=== PATIENT | female | born 1990 | race Caucasian/White ===

== ENCOUNTER 2018-05-18 12:50 | Outpatient (CLI) | payer BC ==
--- NOTE | 2018-06-04 08:08 | Ultrasound Report ---
Reason: EFW FOR DELIVERY PLANNING, GROWTH Procedure Date: 05/18/2018 Accession Number: [id number] / [id number] Procedure: US - OB F/U or Repeat CPT Code: FULL RESULT: EXAM: LIMITED OBSTETRICAL ULTRASOUND EXAM DATE: 05/18/2018 02:34 PM. CLINICAL HISTORY: Encounter for screen for macrosomia. Per physician report, the patient had prior imaging performed in [place] and has a history of macrosomia. COMPARISON: None available. FINDINGS: TECHNIQUE: Real-time sonographic evaluation of the fetus performed by the gear repair supervisor. Multiple artist representative static images were saved for review. DATING: Established EGA 35 weeks and 4 days with ROSANNE 06/18/2018 based on physician supplied established dates. EGA 39 weeks 6 days with ROSANNE 05/19/2018 based on the current ultrasound. GENERAL EVALUATION Morfin . Cardiac activity: 144 bpm. movement: Visualized. Presentation: Cephalic. Placenta: Anterior position. Amniotic fluid: Normal. MANISHA 16.9 cm. MVP 7.2 cm. BIOMETRY Bi-Parietal Diameter (BPD): 9.6 cm, 39 weeks 3 days Head Circumference (HC): 35.4 cm, 41 weeks 2 days Abdominal Circumference (AC): 36.2 cm, 40 weeks 1 day Femur Length (FL): 7.5 cm, 38 weeks 3 days Estimated Weight: 3911 gm, 97th percentile for 35 weeks 4 days. MATERNAL STRUCTURES The cervix is long and closed, at least 5.4 cm. Adnexa are not well seen. IMPRESSION: 1. Morfin live intrauterine with gestational age 35 weeks 4 days based on established due dates as supplied by the referring provider. 2. Estimated weight is in the 97th percentile for assigned dating. LAQUITA
== END 2018-05-18 12:51 | disposition home or self-care (01) ==
LOC: DI 12:50
PROVIDERS: ATTEND Obstetrics & Gynecology
DX: O36.60X1 Maternal care for excessive fetal growth, unspecified trimester, fetus 1 (principal); Z3A.35 35 weeks gestation of pregnancy
CPT/HCPCS: 76816

== ENCOUNTER 2018-05-22 15:29 | Outpatient (CLI) | payer BC | END 2018-05-22 15:30 | LOC: LAB.R 15:29 | PROVIDERS: ATTEND Obstetrics & Gynecology | DX: Z11.3 Encounter for screening for infections with a predominantly sexual mode of transmission (principal); Z36.9 Encounter for antenatal screening, unspecified | CPT/HCPCS: 87081; 87491; 87591 ==

== ENCOUNTER 2018-05-22 15:50 | Outpatient (CLI) | payer BC ==
[2018-05-23 13:49] LABS: HIV AG/AB 4TH GEN NON-REACTIVE (NON-REACTIVE)
[2018-05-23 13:50] LABS: HEPATITIS C ANTIBODY NON-REACTIVE (NON-REACTIVE)
== END 2018-05-22 15:51 | disposition home or self-care (01) ==
LOC: LAB 15:50
PROVIDERS: ATTEND Obstetrics & Gynecology
DX: Z11.3 Encounter for screening for infections with a predominantly sexual mode of transmission (principal); Z36.9 Encounter for antenatal screening, unspecified
CPT/HCPCS: 36415; 81599; 86592; 86803; 87077; 87081; 87389; 87491; 87591

== ENCOUNTER 2018-06-07 18:58 | Outpatient (CLI) | payer BC ==
--- NOTE | 2018-06-08 09:58 | Ultrasound Report ---
Reason: ENCOUNTER FOR SCREENING FOR MACROS Procedure Date: 06/07/2018 Accession Number: [id number] / [id number] Procedure: US - OB Limited CPT Code: FULL RESULT: EXAM: LIMITED OBSTETRICAL ULTRASOUND EXAM DATE: 06/07/2018 08:13 PM. CLINICAL HISTORY: Encounter for screening for macros. COMPARISON: OB limited 05/18/2018 2:34 PM. TECHNIQUE: Real-time sonographic evaluation of the fetus performed by the csm consultant. Multiple sales representative consultant static images were saved for review. DATING: Established EGA 38 weeks 3 days with ROSANNE 06/18/2018. GENERAL EVALUATION Morfin . Cardiac activity: 130 bpm. movement: Visualized. Presentation: Cephalic. Placenta: Anterior and fundal position. Amniotic fluid: Normal. MANISHA 18.4 cm. MVP 6.03 cm. The estimated weight is [address] the fetus in the 97th percentile. The biparietal diameter is 10.1 cm for an estimated age of 41 weeks 5 days. The head circumference of 36.1 cm and the abdominal circumference of 39.7 cm exceed algorithm range for dating. The femur length of 7.8 cm corresponds to a gestational age of 39 weeks and 5 days. MATERNAL STRUCTURES Visualized aspects are normal limits, not specifically evaluated. IMPRESSION: 1. Morfin live intrauterine with gestational age 38 weeks 3 days based on referring provider provided established due date. 2. Persistent macrosomia as described. RADIA
== END 2018-06-07 18:59 | disposition home or self-care (01) ==
LOC: DI 18:58
PROVIDERS: ATTEND Obstetrics & Gynecology
DX: Z36.88 Encounter for antenatal screening for fetal macrosomia (principal); O36.63X0 Maternal care for excessive fetal growth, third trimester, not applicable or unspecified; Z3A.38 38 weeks gestation of pregnancy
CPT/HCPCS: 76815

== ENCOUNTER 2018-06-14 16:43 | Inpatient (IN) | payer BC ==
[2018-06-14] MEDS ORDERED: DINOPROSTONE 10 MG SUPP VG ONE (17:14)
[2018-06-14] MEDS ORDERED: fentaNYL 100 MCG/2 ML VIAL IVP PRN (17:14)
[2018-06-14] MEDS ORDERED: ACETAMINOPHEN 325 MG TABLET PO PRN (17:14)
[2018-06-14 18:08] LABS: BASOPHILS % (AUTO) 0.3 %; EOSINOPHILS # (AUTO) 0.1 10^3/uL (0.0-0.7); EOSINOPHILS % (AUTO) 0.6 %; HGB - HEMOGLOBIN 12.5 g/dL (12.0-16.0); LYMPHOCYTES # (AUTO) 2.2 10^3/uL (1.5-3.5); LYMPHOCYTES % (AUTO) 15.5 %; MEAN CORPUSCULAR HEMOGLOBIN 29.6 pg (27.0-31.0); MEAN CORPUSCULAR HGB CONC 33.7 g/dL (32.0-36.0); MEAN CORPUSCULAR VOLUME 87.9 fL (81.0-99.0); MEAN PLATELET VOLUME 7.4 fL (7.9-10.8); MONOCYTES # (AUTO) 1.4 10^3/uL (0.0-1.0); MONOCYTES % (AUTO) 9.4 %; NEUTROPHILS # (AUTO) 10.7 10^3/uL (1.5-6.6); NEUTROPHILS % (AUTO) 74.2 %; PLT - PLATELET COUNT 271 10^3/uL (130-450); RED BLOOD COUNT 4.21 10^6/uL (4.20-5.40); RED CELL DISTRIBUTION WIDTH 13.9 % (12.0-15.0); WHITE BLOOD COUNT 14.5 x10^3/uL (4.8-10.8)
[2018-06-14] MEDS ORDERED: OXYTOCIN/SODIUM CHLORIDE 500 ML IV ONE (19:48)
[2018-06-15] MEDS ORDERED: ceFAZolin 2 GM/50 ML 2 GM/50 ML BAG IV SCH
[2018-06-15] MEDS: SODIUM CHLORIDE FLUSH 0.9% 10 ML SYRINGE IVP SCH ×3 (07:32→16:06)
[2018-06-15] MEDS: ceFAZolin 1 GM in SODIUM CHLORIDE 0.9% MINIBAG 100 ML IV SCH ×2 (07:56→16:04)
--- NOTE | 2018-06-15 09:27 | HISTORY & PHYSICAL EXAMINATION ---
Admit History - Visit Reason Visit Reason: Other (Induction for suspected Macrosomia) - : 2 Parity: 1 Premature: 0 Ectopic: 0 : 0 Care: positive: [facility] (Pt was a transfer in [facility] at 31 weeks.), None (Ob care started at [place] at 8 weeks continued at [place] then transfered here at 31 weeks. A+, HepB and HIV Negative. Rhubella Immune, GC, CT negative. Delivered a 9lb 6 oz vaginaly after pushing 1 hour. Urine GBS positive X2. 50 gm 124) Risk/History: positive: None Complications This : positive: Treated for GBS/UTI, Other (Suspected Macrosomia EFW 97th %tile. 4787 gm.) Smoking Status: Never smoker - Mother's Labs Mother's Blood Type: positive: A Mother's RH: positive: Positive GBS: positive: Group B Strep Positive Rubella Status: positive: Immune Meds/Allgy - Allergies Allergies/Adverse Reactions: Allergies Allergy/AdvReac Type Severity Reaction Status Date / Time Penicillins Allergy Rash Verified 06/14/18 23:29 Physical - Abdominal Exam Vital Signs: Temp Pulse Resp BP Pulse Ox 36.4 C L 96 22 131/90 H 98 06/15/18 02:00 06/15/18 02:00 06/15/18 02:00 06/15/18 02:00 06/15/18 02:00 Contraction Intensity: positive: Mild - Monitoring Strip Review: positive: Category I - Presentation Presentation: positive: Vertex - Vaginal Exam Membranes: positive: Membranes intact Dilation (in cm): 4 cm Effacement (%): 50 % Station: positive: -2 Cervical Position: positive: Midposition - Speculum Exam Speculum Exam Performed: positive: No Plan for Labor - Plan For Labor I expect patient to be DC'd or transferred within 96 hours.: Yes Plan for Labor: Pt is a 28 yo 39.4 days here for induction for suspected macrosomia. EFW 4787 gms by US. She has successfully delivered a 9 lb 6 oz in the past without difficulty. Labs as above. She is GBS positive and PCN allergic with rash. intermediate sensitivity for Clinda. pt offered PLTCS adsn declines. Reviewed Shoulder dystocia. Cervical ripening with cervidel last night.
[2018-06-15] MEDS: LACTATED RINGERS 1,000 ML IV SCH ×3 (09:29→14:35)
[2018-06-15] MEDS ORDERED: OXYTOCIN/SODIUM CHLORIDE 500 ML IV SCH (10:00)
[2018-06-15 10:35] LABS: URIC ACID 4.8 mg/dL (2.6-7.2)
[2018-06-15 10:55] LABS: CREATININE,URINE 40.2 mg/dL; PROTEIN/CREATININE RATIO,URINE 0.1 (<=0.2)
--- NOTE | 2018-06-15 18:25 | PROVIDER PROGRESS NOTE ---
Labor Progress Note - Uterine Monitoring Uterine Monitoring Mode: positive: External toco : 4 Contraction Intensity: positive: Moderate Uterine Resting Tone: positive: Soft - Monitoring Monitor Mode: positive: External ultrasound Heart Rate Baseline: 150 Heart Rate Variability: positive: Moderate (6-25 bmp) Accelerations: positive: Present, 15x15 Decelerations: positive: None Strip Review: positive: Category I - Vaginal Exam Dilation (in cm): 3 internal oss External oss 6 cm Effacement (%): 50% Station: -2 Cervical Position: Posterior - Labor Progress Note Labor Progress Note/Additional Text: Pt still has a 3 cm internal oss despite pitocin all day. She has had only 1 hour os sleep the past 36 hours. will stop pit fro the night. will alow the pt off monitor tonight as she has had a reactive NST and negative RATE CLERK. Plan dixon bulb in the AM
[2018-06-15] MEDS ORDERED: ZOLPIDEM 5 MG TABLET PO PRN (18:26)
[2018-06-16] MEDS: SODIUM CHLORIDE FLUSH 0.9% 10 ML SYRINGE IVP PRN ×3 (00:03→09:37)
[2018-06-16] MEDS: ceFAZolin 1 GM in SODIUM CHLORIDE 0.9% MINIBAG 100 ML IV SCH ×5 (08:15→23:52)
--- NOTE | 2018-06-16 09:21 | PROVIDER PROGRESS NOTE ---
Labor Progress Note - Uterine Monitoring Contraction Intensity: positive: Mild Uterine Resting Tone: positive: Soft - Monitoring Monitor Mode: positive: External ultrasound Strip Review: positive: Category I - Vaginal Exam Station: Ballotable (cx very posterior unable to reach or place Cook cathiter) Cervical Position: Posterior - Labor Progress Note Labor Progress Note/Additional Text: Pt rested well last PM. ready for Cook cathiter. After several attempts with and without speculum was unable to place catiter. cervidel placed high in the vagina
[2018-06-16] MEDS ORDERED: DINOPROSTONE 10 MG SUPP VG ONE (09:30)
[2018-06-16] MEDS: SODIUM CHLORIDE FLUSH 0.9% 10 ML SYRINGE IVP SCH ×3 (10:10→16:11)
--- NOTE | 2018-06-16 15:03 | PROVIDER PROGRESS NOTE ---
Labor Progress Note - Uterine Monitoring Contraction Frequency (min/apart): 2 Contraction Intensity: positive: Moderate to strong Uterine Resting Tone: positive: Soft - Monitoring Monitor Mode: positive: External ultrasound Heart Rate Baseline: 140 Heart Rate Variability: positive: Moderate (6-25 bmp) Accelerations: positive: Present, 15x15 Decelerations: positive: None Strip Review: positive: Category I - Vaginal Exam Dilation (in cm): 4 Effacement (%): 80 Station: -3 Cervical Position: Posterior - Labor Progress Note Labor Progress Note/Additional Text: Pt is experiencing good strong contractions. Cx is progressing but the head is not desending quickly. good contraction pattern. will follow if head stops decending will C/S
[2018-06-16] MEDS ORDERED: miSOPROStol 200 MCG TABLET ONE (17:09)
[2018-06-16] MEDS ORDERED: LIDOCAINE 1% 50 ML MDV ONE (17:09)
[2018-06-16] MEDS: LACTATED RINGERS 1,000 ML IV SCH ×2 (17:53→19:33)
[2018-06-16] MEDS ORDERED: ROPIVACAINE 0.2% PF 20 ML AMPULE ONE (18:09)
[2018-06-16] MEDS ORDERED: fent/BUPIV 2 MCG/0.125% 250 ML EP ONE (18:10)
[2018-06-16] MEDS ORDERED: ROPIVACAINE 0.2% PF 10 ML AMPULE EPI ONE (18:42)
--- NOTE | 2018-06-16 19:18 | PROVIDER PROGRESS NOTE ---
Labor Progress Note - Uterine Monitoring Uterine Monitoring Mode: positive: External toco Contraction Frequency (min/apart): 2 Contraction Intensity: positive: Strong Uterine Resting Tone: positive: Soft - Monitoring Monitor Mode: positive: External ultrasound Heart Rate Baseline: 140 Heart Rate Variability: positive: Moderate (6-25 bmp) Accelerations: positive: Present, 15x15 Decelerations: positive: None Strip Review: positive: Category I - Vaginal Exam Dilation (in cm): 5 Effacement (%): 90 Station: Ballotable Cervical Position: Posterior (Cervis is progressing but head is back up. will place dixon to drain the bladder.)
[2018-06-16] MEDS ORDERED: MINERAL OIL LIGHT 10 ML MC ONE (19:48)
[2018-06-16] MEDS: ONDANSETRON 4 MG/2 ML VIAL IVP PRN (22:11)
[2018-06-16] MEDS: CALCIUM CARBONATE CHEW 500 MG TABLET PO PRN (23:23)
[2018-06-17] MEDS ORDERED: ROPIVACAINE 0.2% PF 20 ML AMPULE ONE (00:07)
[2018-06-17] MEDS: CALCIUM CARBONATE CHEW 500 MG TABLET PO PRN ×2 (01:57→08:11)
[2018-06-17] MEDS: LACTATED RINGERS 1,000 ML IV SCH ×2 (02:39→16:10)
[2018-06-17] MEDS: ONDANSETRON 4 MG/2 ML VIAL IVP PRN ×3 (04:43→17:59)
[2018-06-17] MEDS ORDERED: fent/BUPIV 2 MCG/0.125% 250 ML EP ONE (06:05)
[2018-06-17] MEDS ORDERED: OXYTOCIN/SODIUM CHLORIDE 500 ML IV SCH (06:30)
--- NOTE | 2018-06-17 07:15 | PROVIDER PROGRESS NOTE ---
Labor Progress Note - Uterine Monitoring Uterine Monitoring Mode: positive: External toco : 4 Contraction Intensity: positive: Strong - Monitoring Monitor Mode: positive: External ultrasound Heart Rate Baseline: 125 Heart Rate Variability: positive: Moderate (6-25 bmp) Accelerations: positive: Present, 15x15 Decelerations: positive: None Strip Review: positive: Category I - Vaginal Exam Dilation (in cm): 10 Effacement (%): 100 Station: 3 Cervical Position: Anterior - Labor Progress Note Labor Progress Note/Additional Text: Pt reached complete at 0420 ad SROMed clear fluid. Has beed pushing well. Has brought the Head from 0 to +3. Strip reactive contractions have spaced so pitocin Started.
[2018-06-17] MEDS: ceFAZolin 1 GM in SODIUM CHLORIDE 0.9% MINIBAG 100 ML IV SCH (07:59)
--- NOTE | 2018-06-17 09:27 | PROVIDER PROGRESS NOTE ---
Labor Progress Note - Uterine Monitoring : 4-5 Contraction Intensity: positive: Strong Uterine Resting Tone: positive: Soft - Monitoring Monitor Mode: positive: External ultrasound Heart Rate Baseline: 120 Heart Rate Variability: positive: Moderate (6-25 bmp) Accelerations: positive: Present, 15x15 - Vaginal Exam Dilation (in cm): 10 Effacement (%): 100% Station: 2 Cervical Position: Anterior - Labor Progress Note Labor Progress Note/Additional Text: Pt has been pushing since 419. she has arrested at +2. She has been pushing with excellent effort. Augmented with Pit. baby is suspected to be 10.4 lb by US. Pt is anxious about C/S. explained R&B. Consent signed.
[2018-06-17] MEDS ORDERED: CITRIC ACID/SODIUM CITRATE 15 ML UDC PO ONE (09:29)
[2018-06-17] MEDS ORDERED: ceFAZolin 2 GM/50 ML 2 GM/50 ML BAG IV SCH (09:30)
--- NOTE | 2018-06-17 09:46 | ANESTHESIA ---
Pre-Anesthesia VS, & Labs - Diagnosis Arrest of descent and macrosomia - Procedure Primary C/S Vital Signs: Temp Pulse Resp BP Pulse Ox 36.8 C 101 H 16 126/62 97 06/15/18 21:00 06/15/18 21:00 06/15/18 21:00 06/15/18 21:00 06/15/18 21:00 Height 5 ft 5 in Weight (kg) 107.955 kg - NPO >8 hours - Is Patient ?: Yes - Lab Results Current Lab Results: Laboratory Tests 06/15/18 10:04: Uric Acid 4.8, AST 14 06/15/18 10:04: Lactate Dehydrogenase 129 06/14/18 17:42: Blood Type A POSITIVE, Antibody Screen NEGATIVE 06/14/18 17:42: WBC 14.5 H, RBC 4.21, Hgb 12.5, Hct 37.0, MCV 87.9, MCH 29.6, MCHC 33.7, RDW 13.9, Plt Count 271, MPV 7.4 L, Neut # (Auto) 10.7 H, Lymph # (Auto) 2.2, Dubois # (Auto) 1.4 H, Eos # (Auto) 0.1, Baso # (Auto) 0.0, Absolute Nucleated RBC 0.01, Nucleated RBC % 0.1 Fish Bones: 06/14/18 17:42 Home Medications and Allergies Active Medications Acetaminophen (Tylenol) 650 mg PO Q6H PRN PRN Reason: Pain or Fever Calcium Carbonate/Glycine (Tums) 1,000 mg PO Q2HR PRN PRN Reason: Heartburn Last Admin: 06/17/18 08:11 Dose: 1,000 mg Fentanyl (Fentanyl) 50 mcg IVP Q1H PRN PRN Reason: PAIN Lactated Ringer's (Lr) 1,000 mls @ 100 mls/hr IV .Q10H DI Last Admin: 06/17/18 02:39 Dose: 150 mls/hr Cefazolin Sodium 1 gm/ Sodium (Chloride) 100 mls @ 200 mls/hr IV Q8H DI Last Infusion: 06/17/18 08:30 Dose: Infused Oxytocin/Sodium Chloride (Pitocin/Sodium Chloride) 500 mls @ 1 mls/hr IV TITR DI; Protocol Last Titration: 11/11/18 09:32 Dose: 0 mls/hr Cefazolin Sodium/Dextrose (Ancef 2 Gm/50 Ml) 2 gm in 50 mls @ 100 mls/hr IV Q8H [facility] Ondansetron HCl (Zofran Inj) 4 mg IVP Q4HR PRN PRN Reason: Nausea / Vomiting Last Admin: 06/17/18 04:43 Dose: 4 mg Sodium Chloride (Normal Saline Flush 0.9%) 10 ml IVP 0100,0900,1700 DI Last Admin: 06/16/18 16:11 Dose: Not Given Sodium Chloride (Normal Saline Flush 0.9%) 10 ml IVP PRN PRN PRN Reason: NEEDED PER PROVIDER ORDERS Last Admin: 06/16/18 09:37 Dose: 10 ml Zolpidem Tartrate (Ambien) 5 mg PO QPM PRN PRN Reason: Insomnia Last Admin: 06/15/18 20:30 Dose: 5 mg Allergies/Adverse Reactions: Allergies Allergy/AdvReac Type Severity Reaction Status Date / Time Penicillins Allergy Rash Verified 06/14/18 23:29 Anes History & Medical History - Anesthetic History Anesthesia Complications: reports: No previous complications - Medical History Cardiovascular: reports: None Pulmonary: reports: None Gastrointestinal: reports: GERD (poorly controlled) Urinary: reports: None Neuro: reports: None Musculoskeletal: reports: None Endocrine/Autoimmune: reports: None Blood Disorders: reports: None Skin: reports: None Smoking Status: Never smoker Psychosocial: reports: No issues indicated - Surgical History General: Cholecystectomy Orthopedic: Arthroscopic surgery (Knee scope x2) - Obstetrical History : 2 Parity: 1 Events: positive: None Complications: positive: Treated for GBS/UTI, Other (Suspected Macrosomia EFW 97th %tile. 4787 gm.) Exam General: Alert, Oriented x3, Cooperative, No acute distress Dental: WNL Mouth Openin Fingerbreadth Neck Mobility: Normal Mallampati classification: II Thyromental Distance: 4-6 cm Respiratory: Lungs clear, Normal breath sounds, No respiratory distress, No accessory muscle use Cardiovascular: Regular rate, Normal S1, Normal S2, No murmurs Mental/Cognitive Status: Alert/Oriented X3, Normal for patient Cognitive Status: Within normal limits Plan Anesthesia Type: Epidural Consent for Procedure(s) Verified and Reviewed: Yes Code Status: Attempt Resuscitation ASA classification: 2-Mild systemic disease Is this case an emergency?: Yes
[2018-06-17] MEDS ORDERED: BUPIVACAINE 0.5% PF 10 ML VIAL ONE (09:56)
[2018-06-17] MEDS ORDERED: LACTATED RINGERS 500 ML IV ONE (09:59)
[2018-06-17] MEDS ORDERED: LACTATED RINGERS 1,000 ML IV ONE (09:59)
[2018-06-17] MEDS ORDERED: ceFAZolin 2 GM/50 ML 2 GM/50 ML BAG IV ONE (11:23)
[2018-06-17] MEDS ORDERED: fentaNYL 100 MCG/2 ML VIAL IVP ONE (11:23)
[2018-06-17] MEDS ORDERED: HYDROmorphone 1 MG/ML CARPUJECT IVP ONE (11:23)
[2018-06-17] MEDS ORDERED: OXYTOCIN 10 UNIT/ML VIAL IV ONE (11:23)
[2018-06-17] MEDS ORDERED: PROPOFOL 200 MG/20 ML VIAL IVP ONE (11:23)
[2018-06-17] MEDS ORDERED: SUCCINYLCHOLINE 200 MG/10 ML VIAL IVP ONE (11:23)
[2018-06-17] MEDS ORDERED: BUPIVACAINE 0.5% PF 10 ML VIAL IM ONE (11:23)
[2018-06-17] MEDS ORDERED: ACETAMINOPHEN 1,000 MG/100 ML 100 ML IV ONE (11:23)
[2018-06-17] MEDS ORDERED: KETOROLAC 30 MG/ML VIAL IVP ONE (11:23)
[2018-06-17] MEDS ORDERED: CARBOPROST TROMETHAMINE 250 MCG/ML AMP IM ONE ×2 (11:23→12:32)
[2018-06-17] MEDS ORDERED: LIDOCAINE-MPF 2% 5 ML VIAL IM ONE (11:23)
[2018-06-17] MEDS ORDERED: ONDANSETRON 4 MG/2 ML VIAL IVP ONE (11:23)
[2018-06-17] MEDS ORDERED: SODIUM CHLORIDE FLUSH 0.9% 10 ML SYRINGE IVP PRN (12:18)
[2018-06-17] MEDS ORDERED: diphenhydrAMINE 25 MG CAPSULE PO PRN (12:18)
[2018-06-17] MEDS ORDERED: HYDROmorphone PCA 20MG/100ML IV PRN (12:24)
--- NOTE | 2018-06-17 12:32 | OPERATIVE REPORT ---
Operative Report - General Admit Date: 06/15/18 Procedure Date: 06/17/18 Planned Procedure: PLTC/S Pre-Op Diagnosis: Arrest of dilitation Procedure Performed: PLTC/S Post Op Diagnosis: Suspected feta; macrosomia 10.4 lb, Arrest of decent - Procedure Note Primary Surgeon: Ayden Shipman MD Secondary Surgeon: Jessenia ISLAS Anesthesia Technique: General ET tube Estimated Blood Loss (mL): 900 Drain/Tube Type: Other (Wound Vac) Complications: None - Other Other Information/Narrative: [id number]
[2018-06-17] MEDS ORDERED: LACTATED RINGERS 1,000 ML IV SCH (13:00)
--- NOTE | 2018-06-17 13:14 | OPERATIVE REPORT ---
DATE OF SERVICE: 06/17/2018 Physician: Ayden Shipman MD PREOPERATIVE DIAGNOSES 1. Thirty-nine weeks. 2. Suspected macrosomia 10.5 pounds. 3. Arrest of descent. POSTOPERATIVE DIAGNOSES 1. Thirty-nine weeks. 2. 8 lbs 15 oz. 3. Arrest of descent. PROCEDURE PERFORMED: Primary low transverse section. SANDER SETTER: Jessenia Calvo CRNA. ANESTHESIA: General via endotracheal tube. ESTIMATED BLOOD LOSS: 900 mL FINDINGS: Live male , Apgars 6 and 8. Weighing 8 pounds 15 ounces. Normal uterus, tubes and ovaries. Mild post-delivery atony. DESCRIPTION OF PROCEDURE: Patient was placed in the supine position, and following prep and drape in the usual fashion, the epidural was tested and noted not to be adequate. Because of suspected possible intravascular leak with the previous injection, it was decided to proceed with a general anesthesia. At this point, patient was induced with a rapid sequence, then a Pfannenstiel incision was carried down through the subcutaneous tissue to the fascia. The fascia was incised transversely, then using both blunt and sharp dissection, it was freed from the rectus abdominis and pyramidalis. The rectus was split along the midline. The peritoneum was entered high. Care was taken to avoid any injury to bowel or bladder. At this point, a bladder flap was developed using both blunt and sharp dissection, a low transverse uterine incision was accomplished using a #10 blade and bandage scissors. Clear amniotic fluid was encountered, and there was copious amounts of this. The head of the , which was deeply wedged in the pelvis, was brought up straight to decrease the risk of any lateral extensions. The head was to be OP. The oropharynx was bulb suctioned, and then the infant was delivered, following reducing the nuchal cord. The cord was doubly clamped and divided. The infant was handed to the nursery team that was standing by. Cord blood samples were obtained, and at this point, the placenta was manually delivered. The uterus was exteriorized, wrapped in the external portion with a moist lap, and cleansed in the internal portion with a dry lap. Lower portion of the incision was grasped with ring forceps, and then the incision was closed utilizing a running locking suture of 0 Vicryl. This was imbricated with 0 Vicryl with an imbricating layer as there were some vascularity. There was evidence of some bleeding from a vessel that was in the midline between the uterus and the bladder. This was treated with [id number] of 2-0 Vicryl. Good hemostasis was observed. The cul-de-sac was cleared of any clot, and the estimation of blood loss was made at this time. At this point, the uterus was delivered back in the abdominal cavity, following irrigating the cul-de-sac. There was bleeding on the left fimbriated end of the fallopian tube; this was treated with electrocautery. The incision was inspected and additional [id number]-[id number] of 2-0 Vicryl utilized to obtain good hemostasis. The gutters were irrigated, no further bleeding was noted, and following this, the incision was inspected, and once again this was dry. Peritoneum was closed utilizing 2-0 Vicryl, and then the fascia was closed utilizing looped PDS. The subcutaneous tissue was cauterized, irrigated, and then closed utilizing 2-0 Vicryl interrupted sutures. The incision itself closed using subcuticular Monocryl and then Steri-Strips following Mastisol were applied. A wound VAC was then placed. The uterus was expressed. Patient tolerated the procedure well and was taken to recovery in stable condition. Sponge and needle counts were correct. TD: 06/17/2018 12:47 MTDShaka
[2018-06-17] MEDS: SODIUM CHLORIDE FLUSH 0.9% 10 ML SYRINGE IVP SCH ×4 (13:45→21:59)
[2018-06-17] MEDS: SIMETHICONE CHEW 80 MG TABLET PO SCH ×2 (16:04→21:59)
[2018-06-17] MEDS: KETOROLAC 30 MG/ML VIAL IV SCH ×2 (16:04→21:59)
[2018-06-17] MEDS ORDERED: SODIUM CHLORIDE FLUSH 0.9% 10 ML SYRINGE IVP SCH (17:00)
[2018-06-17] MEDS: ACETAMINOPHEN 500 MG TABLET PO SCH (17:59)
[2018-06-17] MEDS: oxyCODONE 5 MG TABLET PO PRN ×2 (19:00→23:01)
[2018-06-18] MEDS: ACETAMINOPHEN 500 MG TABLET PO SCH ×4 (00:03→23:59)
[2018-06-18] MEDS: oxyCODONE 5 MG TABLET PO PRN ×7 (03:14→23:59)
[2018-06-18] MEDS: SODIUM CHLORIDE FLUSH 0.9% 10 ML SYRINGE IVP SCH ×4 (04:08→10:14)
[2018-06-18] MEDS: KETOROLAC 30 MG/ML VIAL IV SCH ×2 (04:08→10:12)
[2018-06-18 06:25] LABS: BASOPHILS % (AUTO) 0.2 %; EOSINOPHILS # (AUTO) 0.2 10^3/uL (0.0-0.7); EOSINOPHILS % (AUTO) 1.8 %; HGB - HEMOGLOBIN 10.2 g/dL (12.0-16.0); LYMPHOCYTES # (AUTO) 1.8 10^3/uL (1.5-3.5); LYMPHOCYTES % (AUTO) 13.4 %; MEAN CORPUSCULAR HEMOGLOBIN 30.4 pg (27.0-31.0); MEAN CORPUSCULAR HGB CONC 34.3 g/dL (32.0-36.0); MEAN CORPUSCULAR VOLUME 88.6 fL (81.0-99.0); MEAN PLATELET VOLUME 6.7 fL (7.9-10.8); MONOCYTES # (AUTO) 1.4 10^3/uL (0.0-1.0); MONOCYTES % (AUTO) 10.3 %; NEUTROPHILS # (AUTO) 9.9 10^3/uL (1.5-6.6); NEUTROPHILS % (AUTO) 74.3 %; PLT - PLATELET COUNT 230 10^3/uL (130-450); RED BLOOD COUNT 3.36 10^6/uL (4.20-5.40); RED CELL DISTRIBUTION WIDTH 14.3 % (12.0-15.0); WHITE BLOOD COUNT 13.4 x10^3/uL (4.8-10.8)
[2018-06-18] MEDS: SIMETHICONE CHEW 80 MG TABLET PO SCH ×3 (08:00→16:03)
--- NOTE | 2018-06-18 08:59 | PROVIDER PROGRESS NOTE ---
Subjective - General Admit Date: 06/15/18 Procedure Date: 06/17/18 Post Op Days: 1 Procedure Performed: PLTC/S - Review of Systems Wound/Incisions: positive: Healing well Drain Type: Wound Vac General: positive: No symptoms (Pain 3/10 notes good pain control) Gastrointestinal: negative: Flatus Objective - Patient Data Reviewed Vital Signs: Yes Vital Signs: Vital Signs x48h Temp Pulse Resp BP Pulse Ox 06/18/18 08:00 36.7 C 113 H 18 123/89 H 98 06/18/18 03:34 36.5 C 85 18 118/71 96 Intake & Output: Intake and Output Totals x24h 06/16/18 06/17/18 06/18/18 23:59 23:59 23:59 Intake Total 1811.5 3202.9 1500 Output Total 226 3080 2000 Balance 1585.5 122.9 -500 - Lab Results Lab Results: 06/18/18 06:12 Other Lab Results: Lab Results x24hrs 06/18/18 Range/Units 06:12 WBC 13.4 H (4.8-10.8) x10^3/uL RBC 3.36 L (4.20-5.40) 10^6/uL Hgb 10.2 L (12.0-16.0) g/dL Hct 29.8 L (37.0-47.0) % MCV 88.6 (81.0-99.0) fL MCH 30.4 (27.0-31.0) pg MCHC 34.3 (32.0-36.0) g/dL RDW 14.3 (12.0-15.0) % Plt Count 230 (130-450) 10^3/uL MPV 6.7 L (7.9-10.8) fL Neut # (Auto) 9.9 H (1.5-6.6) 10^3/uL Lymph # (Auto) 1.8 (1.5-3.5) 10^3/uL Wilson # (Auto) 1.4 H (0.0-1.0) 10^3/uL Eos # (Auto) 0.2 (0.0-0.7) 10^3/uL Baso # (Auto) 0.0 (0.0-0.1) 10^3/uL Absolute Nucleated RBC 0.00 x10^3/uL Nucleated RBC % 0.0 /100WBC - Current Medications Current Medications: Current Medications Generic Name Dose Route Start Last Admin Trade Name Nghia PRN Reason Stop Dose Admin Acetaminophen 1,000 mg 06/17/18 13:00 06/18/18 08:00 Tylenol PO 1,000 mg Q8H DI Administration Calcium Carbonate/Glycine 1,000 mg 06/16/18 22:48 06/17/18 08:11 Tums PO 1,000 mg Q2HR PRN Administration Heartburn Hydromorphone HCl 0 mg 06/17/18 12:24 06/17/18 12:45 Dilaudid Fur Finisher 20mg/100ml IV 20 mg PRN PRN Administration PAIN Protocol Lactated Ringer's 1,000 mls @ 100 mls/hr 06/14/18 18:00 06/18/18 00:00 Lr IV Infused .Q10H DI Infusion Oxytocin/Sodium Chloride 500 mls @ 1 mls/hr 06/17/18 06:30 06/18/18 00:00 Pitocin/Sodium Chloride IV 0 milliunit/min TITR DI 0 mls/hr Titration Protocol 1 MILLIUNIT/MIN Ondansetron HCl 4 mg 06/14/18 17:14 06/17/18 17:59 Zofran Inj IVP 4 mg Q4HR PRN Administration Nausea / Vomiting Oxycodone HCl 5 mg 06/17/18 12:18 06/18/18 08:00 Roxicodone PO 5 mg Q4HR PRN Administration PAIN Simethicone 80 mg 06/17/18 14:00 06/18/18 08:00 Mylicon PO 80 mg TID DI Administration Sodium Chloride 10 ml 06/15/18 01:00 06/18/18 08:00 Normal Saline Flush 0.9% IVP 10 ml 0100,0900,1700 DI Administration Sodium Chloride 10 ml 06/14/18 17:14 06/16/18 09:37 Normal Saline Flush 0.9% IVP 10 ml PRN PRN Administration NEEDED PER PROVIDER ORDERS Sodium Chloride 10 ml 06/17/18 17:00 06/17/18 16:04 Normal Saline Flush 0.9% IVP 10 ml 0100,0900,1700 DI Administration Zolpidem Tartrate 5 mg 06/15/18 18:26 06/15/18 20:30 Ambien PO 5 mg QPM PRN Administration Insomnia - Physical Exam Wound/Incisions: positive: Dressing dry and intact (Good seal) General Appearance: positive: No acute distress (breast feeding) Respiratory: positive: Chest non-tender, No respiratory distress, Breath sounds nml Cardiovascular: positive: Regular rate & rhythm, No murmur, No gallop Abdomen: positive: Nml bowel sounds, Tenderness (Postop) Back: negative: CVA tenderness (R), CVA tenderness (L) Skin: positive: Color nml, No rash, Warm, Dry Extremities: negative: Calf tenderness, Kat's sign/cords Neurologic/Psychiatric: positive: Oriented x3 Impression/Plan - Problem List Problem List: POD #1 progressing well will start MOM
[2018-06-18] MEDS ORDERED: MAGNESIUM HYDROXIDE 2,400 MG/30 ML UDC PO PRN (09:01)
[2018-06-18] MEDS: IBUPROFEN 800 MG TABLET PO SCH ×2 (16:03→22:35)
[2018-06-18] MEDS: DOCUSATE SODIUM 100 MG CAPSULE PO SCH (20:15)
[2018-06-19] MEDS: oxyCODONE 5 MG TABLET PO PRN ×3 (05:01→12:25)
[2018-06-19] MEDS: IBUPROFEN 800 MG TABLET PO SCH ×2 (05:53→12:26)
[2018-06-19] MEDS: SIMETHICONE CHEW 80 MG TABLET PO SCH ×2 (08:21→11:34)
[2018-06-19] MEDS: DOCUSATE SODIUM 100 MG CAPSULE PO SCH (08:21)
[2018-06-19] MEDS: ACETAMINOPHEN 500 MG TABLET PO SCH (08:22)
[2018-06-19 11:21] VITALS: BP 129/75
--- NOTE | 2018-06-19 12:48 | PROVIDER PROGRESS NOTE ---
Subjective - General Admit Date: 06/15/18 Procedure Date: 06/17/18 Post Op Days: 2 Procedure Performed: PLTC/S - Review of Systems Wound/Incisions: positive: Dressing dry and intact (doing well) Drain Type: Wound Vac General: positive: No symptoms (Pain 3/10 notes good pain control. using 10 Mg oxycodone) Gastrointestinal: negative: Flatus Objective - Patient Data Reviewed Vital Signs: Yes Vital Signs: Vital Signs x48h Temp Pulse Resp BP Pulse Ox 06/19/18 11:17 36.4 C L 91 19 129/75 98 06/19/18 08:15 36.5 C 92 18 128/79 98 06/19/18 05:09 36.8 C 88 18 123/74 97 Intake & Output: Intake and Output Totals x24h 06/17/18 06/18/18 06/19/18 23:59 23:59 23:59 Intake Total 3202.9 4060 Output Total 3080 2350 Balance 122.9 1710 - Lab Results Lab Results: 06/18/18 06:12 - Current Medications Current Medications: Current Medications Generic Name Dose Route Start Last Admin Trade Name Freq PRN Reason Stop Dose Admin Acetaminophen 1,000 mg 06/17/18 13:00 06/19/18 08:22 Tylenol PO 1,000 mg Q8H DI Administration Calcium Carbonate/Glycine 1,000 mg 06/16/18 22:48 06/17/18 08:11 Tums PO 1,000 mg Q2HR PRN Administration Heartburn Docusate Sodium 100 mg 06/18/18 21:00 06/19/18 08:21 Colace 100mg Capsule PO 100 mg BID DI Administration Ibuprofen 800 mg 06/18/18 13:00 06/19/18 12:26 Motrin PO 800 mg Q6H DI Administration Oxycodone HCl 10 mg 06/18/18 13:54 06/19/18 12:25 Roxicodone PO 10 mg Q4HR PRN Administration PAIN Simethicone 80 mg 06/17/18 14:00 06/19/18 11:34 Mylicon PO 80 mg TID DI Administration Zolpidem Tartrate 5 mg 06/15/18 18:26 06/15/18 20:30 Ambien PO 5 mg QPM PRN Administration Insomnia - Physical Exam Wound/Incisions: positive: Dressing dry and intact General Appearance: positive: No acute distress, Alert Respiratory: positive: Chest non-tender, No respiratory distress, Breath sounds nml Cardiovascular: positive: Regular rate & rhythm, No murmur Abdomen: positive: Tenderness (on uterus as expected) Rectal: positive: Mass (U-0) Back: negative: CVA tenderness (R), CVA tenderness (L) Neurologic/Psychiatric: positive: Oriented x3 Impression/Plan - Problem List Problem List: S/P PLTC/S progressing well. Discharge to home. RTC one week for vound vac removal. Discharge Meds Oxycodone 10 Mg Motrin 800 colace 100 mg Breast feeding.
--- NOTE | 2018-06-19 12:52 | Discharge Plan ---
Discharge Plan Disposition: 01 Home, Self Care Condition: Good Diet: Regular Shower Restrictions: No Driving Restrictions: Yes (when taking narcotics) Weight Bearing: Full Weight No Smoking: If you smoke, Please STOP! Call for help. Follow-up with: Ayden Shipman MD [Provider Admit Priv/Credential] -
--- NOTE | 2018-06-19 15:03 | Labor Flowsheet ---
Labor Flowsheet Datetime Report Generated by CPN: 06/19/2018 15:03 Datetime: 06/19/2018 11:09 Pulse: 86 SpO2 (%): 98 LaborFlag: Labor Datetime: 06/19/2018 11:08 VITAL SIGNS NBP Sys/Corrina/Mean (mmHg): 129 : 75 : 86 Datetime: 06/17/2018 09:51 Comments: FHT 120s prior to leaving room for Datetime: 06/17/2018 09:45 UTERINE ACTIVITY Monitor Mode: External Frequency (min): 4-6 Quality: Strong Duration (sec): 50-90 Pattern: Normal: <= 5 Contractions in 10 Minutes Resting Tone (Palpate): Relaxed ASSESSMENT A Monitor Mode: External US FHR Baseline Rate : 120 FHR Baseline Changes: No Baseline Change Variability: Moderate 6-25 bpm Accelerations: 15X15 Decelerations: None Category: Category I Oxygen Method: Room Air Datetime: 06/17/2018 09:39 Anesthesia Comments: adreine estefani here Datetime: 06/17/2018 09:38 Respirations: 16 Temperature (C): 37.0 Datetime: 06/17/2018 09:02 Communication Comments: c -section decision Datetime: 06/17/2018 08:26 Vaginal Exam Comments: +2 to +3 COMMUNICATION Communication: Provider at Bedside Datetime: 06/17/2018 08:20 Effacement (%): 2 Datetime: 06/17/2018 07:46 MEDICATIONS Pitocin (milliunits): Increased to @ 3 Datetime: 06/17/2018 07:44 Monitor Interventions for FHR: Ultrasound Adjusted Datetime: 06/17/2018 07:15 Monitor Interventions for UA: [place] Adjusted Datetime: 06/17/2018 07:05 TEACHING Instructional Method: Verbal Plan of Care: Plan of Care Discussed Datetime: 06/17/2018 07:03 PAIN Pain Scale: 0 Pain Presence: None/Denies Pain Type: N/A Datetime: 06/17/2018 06:38 Provider Notified (Name): Dr. Giem Datetime: 06/17/2018 06:00 Unit Routine: Medications Labor/Induction: Augmentation Medications: Pitocin Datetime: 06/17/2018 05:47 Patient Position/Activity: High Fowlers Datetime: 06/17/2018 04:43 Antiemetics/Antacids: Zofran (mg) @ Datetime: 06/17/2018 04:35 STAGE 2 Pushing: Coached on Pushing Pushing Position: Pushing with Contractions Pushing Progress: Descent with Pushing Datetime: 06/17/2018 04:20 VAGINAL EXAM Dilatation (cm): 10.0 Station: 0 Exam by: Orestes, RN Datetime: 06/17/2018 04:15 Membrane Status: Ruptured Membranes Rupture Method: Spontaneous Amniotic Fluid Color: Clear Amniotic Fluid Amount: Moderate Membrane Comments: bloody show Datetime: 06/17/2018 04:11 Pain Assessment Comments: pt sleeping Datetime: 06/17/2018 04:06 Patient Care Comments: pt sleeping Datetime: 06/17/2018 02:00 MATERNAL ASSESSMENT Level of Consciousness: Fully Conscious Breath Sounds, Left: Clear and Equal Breath Sounds, Right: Clear and Equal Nausea/Vomiting: Hx of Nausea/Vomiting Medication Comments: tums Anesthesia Level Check: T7 Datetime: 06/17/2018 00:12 Pain Management: Epidural Datetime: 06/17/2018 00:07 Epidural Procedure: Loading Dose Datetime: 06/16/2018 20:00 Actions for Decelerations: Side to Side Datetime: 06/16/2018 19:24 I/O Interventions: Richter Cath Inserted Datetime: 06/16/2018 18:30 Stage of : Labor Pain Location: Abdomen Pain Goal: 3 Pain Relief Measures: Comfort Measures Datetime: 06/16/2018 18:20 Epidural Procedure Other: Pump Started Datetime: 06/16/2018 17:49 PATIENT CARE IV/Blood Work: New IV Bag Hung Datetime: 06/16/2018 17:39 PROCEDURE TIME OUT Procedure Verify: Correct Patient Identity; Correct Side and Site are Marked; Accurate Procedure Co nsent Form; Agreement on Procedure to be Done; Correct Patient Position; Safety Precautions Based on Patient History or Medication Use ANESTHESIA Anesthesia Plans: Epidural Epidural Positioning: Sitting Datetime: 06/16/2018 17:10 Anesthesia Interview: Dr. Huff called for request for epidural placement, IV bolus started. He's enroute Datetime: 06/16/2018 17:08 Hygiene: Underpad Changed; Peripad Changed Datetime: 06/16/2018 17:00 Pain Coping: Talking Through Contractions; Breathing Through Contractions Anesthesia Interventions Other: Other Notification Reason: Status Update; Labor Status; Pain; Patient Request Nurse Giving Report: Patient cervix change, patient requesting an epidural Datetime: 06/16/2018 15:00 Temperature Route: Oral Cervix, Consistency: Soft Cervix, Position: Posterior Presentation 'A': Cephalic Comfort Measures: Breathing/Relaxation; Family Support Provider Reviewed Strip: Yes Strip Reviewed by: Dr. Giem Datetime: 06/16/2018 11:15 Cervical Ripening Agents: Cervidil Datetime: 06/16/2018 09:15 COOK'S SCORE Dilatation (cm): 3-4 cms Effacement: 40-50_ effaced Station: minus 2 Consistency: Soft Position: Posterior Total Cook's Score: 6 : 5-8 = Small percentage of induction failure Cervical Ripening Agents Other: cervidil placed @9:15 after several attempts to placed Cook cathete r by provider Procedures: Sterile Vag Exam Datetime: 06/16/2018 08:11 Headache: Denies RUQ Epigastric Pain: Denies PRE-INDUCTION CHECKLIST Orders on Chart: Yes H Datetime: 06/15/2018 18:02 Vital Sign Comments: SL'd Datetime: 06/15/2018 16:45 Contraction Comments: Unable to determine contraction frequency due to patient getting out of jacuz zi and getting dressed. x3 contractions noted lasting between 60-90 seconds. Datetime: 06/15/2018 16:03 Antibiotics: Ancef IV (Gm) @ 1 Datetime: 06/15/2018 14:55 Vaginal Bleeding: None Datetime: 06/15/2018 09:28 Pitocin Checklist: At Least 1 Acceleration of 15 bpm x 15 Seconds in 30 Minutes or Adequate Variabi lity; No More than 1 Late Deceleration Occurred in Past 30 Minutes; No More than 2 Variable Decelerat ions > 60 Seconds in Duration and decreasing >60 bpm in 30 minutes; No More than 5 Uterine Contractio ns in 10 Minutes for any 20 Minute Interval; Uterus Palpates Soft between Contractions Datetime: 06/15/2018 09:05 Maternal Comments: havy breathing through ctxs Datetime: 06/15/2018 09:03 DTR's/Clonus: DTRs 2+ Datetime: 06/15/2018 01:30 Resting Tone IUP (mmHg):
--- NOTE | 2018-07-04 20:49 | DISCHARGE SUMMARY ---
Physician: Ayden Shipman MD DATE OF ADMISSION: 06/15/2018 DATE OF DISCHARGE: 06/19/2018 ADMITTING DIAGNOSES 1. A. 28-year-old G2, P1, female at 39.4 weeks. 2. Suspected macrosomia with an EFW of 4787 gram. PROCEDURES 1. Pitocin induction. 2. Cervical ripening. 3. Pitocin augmentation. 3. Primary low transverse HISTORY OF PRESENT ILLNESS: The patient is a 28-year-old G2, P1, female who was 39.4 weeks on admission. She had an ultrasound done here, which showed an EFW of 97th percentile at 4787 grams. She had been initially started her OB care in [place] at 8 weeks, she continued her care at [place], [place] and transferred to our care at 31 weeks. She is known to be hepatitis B and HIV negative. Rubella immune. GC and CT negative. She had previously delivered a 9 pound 6 ounce infant after for 1 hour. Her GBS was positive, but since she was ALLERGIC TO PENICILLIN, she needed for antibiotic coverage. LABORATORIES: CBC on admission showed a white count of 14.5, hemoglobin was 12.5, hematocrit 37.0, platelets were 271. She had a uric acid done of 4.8. AST was 14. LDH was 129. Urine protein creatinine ratio was 0.1. Postoperative hemoglobin fell to 10.2, hematocrit 39, platelets were 230. Her white count was 13.4. HOSPITAL COURSE: The patient was admitted and started on Pitocin. She got a little or no rest and made very little progress the first day. For this reason, she was allowed to sleep overnight and induction was reinitiated. Upon reevaluating her cervix the next morning it was felt to be exteriorly 4 cm, but interiorly only 3 cm. After discussion with the patient, we to try and place a Richter bulb in there and this was unsuccessful, both with a speculum as well as manually. For this reason, she was placed on Cervidil throughout the day. She did indeed engage in labor herself and required augmentation with Pitocin. She spontaneously ruptured and reached complete at 0420. The amniotic fluid was clear. She pushed well. She brought the head down from 0 to +2. Strip was reactive; however, she was unable to push the out. Because of the concerns of suspected macrosomia, it was felt that putting a vacuum on this would potentially lead to a shoulder dystocia, which severity could not be easily estimated in advance. For this reason, she was taken for a section, which was performed without difficulty. Her postoperative course was unremarkable. She had a wound VAC placed. Her diet was advanced, and she was discharged to home on the with instruction to follow up in the office in 1 week for removal of her wound VAC. DISCHARGE MEDICATIONS 1. Oxycodone 10 mg. 2. Motrin 800 mg. 2. Colace 100 mg. TD: 07/04/2018 12:33 MTDD
== END 2018-06-19 14:50 | disposition home or self-care (01) | DRG 788 ==
LOC: WFO 16:43 → FBP 16:44 → WFO 17:13 → FBP 17:14 → OBSVTOIN 06-15 06:52
PROVIDERS: ADMIT Obstetrics & Gynecology; ATTEND Obstetrics & Gynecology
PROC: 3E033VJ Introduction of Other Hormone into Peripheral Vein, Percutaneous Approach (ICD-10-PCS; 2018-06-15)
PROC: 3E0P7VZ Introduction of Hormone into Female Reproductive, Via Natural or Artificial Opening (ICD-10-PCS; 2018-06-16)
PROC: 10D00Z1 Extraction of Products of Conception, Low, Open Approach (ICD-10-PCS; principal; 2018-06-17 09:45)
DX: O99.824 Streptococcus B carrier state complicating childbirth (principal); O64.0XX0 Obstructed labor due to incomplete rotation of fetal head, not applicable or unspecified; O75.89 Other specified complications of labor and delivery; O74.6 Other complications of spinal and epidural anesthesia during labor and delivery; Z3A.39 39 weeks gestation of pregnancy; Z37.0 Single live birth; Z88.0 Allergy status to penicillin
CPT/HCPCS: G0378; G0379; 36415; 59200; 82570; 83615; 84156; 84450; 84550; 85025; 86850; 86900; 86901; 96365; 96366

== ENCOUNTER 2018-06-27 14:01 | Outpatient (CLI) | payer BC | END 2018-06-27 14:02 | disposition home or self-care (01) | LOC: LAB.R 14:01 | PROVIDERS: ATTEND Nurse Practitioner Obstetrics & Gynecology | DX: N39.0 Urinary tract infection, site not specified (principal) | CPT/HCPCS: 87086 ==

== ENCOUNTER 2020-03-10 15:35 | Outpatient (CLI) | payer BC ==
[2020-03-10 18:00] LABS: CANDIDA GROUP DNA NEGATIVE (NEGATIVE); CANDIDA KRUSEI DNA NEGATIVE (NEGATIVE); TRICHOMONAS VAGINALIS DNA NEGATIVE (NEGATIVE)
== END 2020-03-10 23:59 | disposition home or self-care (01) ==
LOC: LAB.R 15:35
PROVIDERS: ATTEND Obstetrics & Gynecology
DX: N89.8 Other specified noninflammatory disorders of vagina (principal)
CPT/HCPCS: 87661; 87801

== ENCOUNTER 2020-07-28 16:37 | Outpatient (CLI) | payer BC | END 2020-07-28 16:38 | disposition home or self-care (01) | LOC: COV 16:37 | PROVIDERS: ATTEND Family Medicine | DX: R05 Cough (principal); R43.8 Other disturbances of smell and taste; R09.81 Nasal congestion; J34.89 Other specified disorders of nose and nasal sinuses; Z20.828 Contact with and (suspected) exposure to other viral communicable diseases ==

== ENCOUNTER 2020-11-27 10:34 | Inpatient (IN) | payer BC, OTHER ==
--- OUTSIDE RECORDS SUMMARY | 2020-11-27 11:00 | EXTERNAL MEDICAL SUMMARY RPT | Continuity of Care Document ---
:1990 Demographics Phone Unavailable Preferred Language Unknown Marital Status Unknown Nondenominational Affiliation Unknown Race Unknown Ethnic Group Unknown Author Organization [facility] Address [address] [phone] Phone Social History date description facility [phone]
[2020-11-27 11:14] LABS: BASOPHILS % (AUTO) 0.1 %; EOSINOPHILS # (AUTO) 0.1 10^3/uL (0.0-0.7); HGB - HEMOGLOBIN 13.9 g/dL (12.0-16.0); MEAN CORPUSCULAR HEMOGLOBIN 29.8 pg (27.0-31.0); MEAN CORPUSCULAR HGB CONC 33.1 g/dL (32.0-36.0); MEAN CORPUSCULAR VOLUME 90.1 fL (81.0-99.0); MEAN PLATELET VOLUME 8.4 fL (7.9-10.8); MONOCYTES % (AUTO) 11.9 %; NEUTROPHILS # (AUTO) 5.8 10^3/uL (1.5-6.6); NEUTROPHILS % (AUTO) 72.5 %; PLT - PLATELET COUNT 365 10^3/uL (130-450); RED BLOOD COUNT 4.66 10^6/uL (4.20-5.40); RED CELL DISTRIBUTION WIDTH 12.3 % (12.0-15.0)
[2020-11-27 11:25] LABS: ALBUMIN 3.6 g/dL (3.2-5.5); ALBUMIN/GLOBULIN RATIO 0.8 (1.0-2.2); BILIRUBIN,TOTAL 0.6 mg/dL (0.2-1.0); CALCIUM 9.1 mg/dL (8.5-10.3); CREATININE 0.6 mg/dL (0.4-1.0); POTASSIUM 4.4 mmol/L (3.5-5.0); TOTAL PROTEIN 8.4 g/dL (6.7-8.2)
--- NOTE | 2020-11-27 11:46 | XRAY Report ---
PROCEDURE: Chest 1 View X-Ray INDICATIONS: covid - 19 TECHNIQUE: One view of the chest was acquired. COMPARISON: None FINDINGS: Surgical changes and devices: None. Lungs and pleura: Patchy airspace opacities throughout both lungs with a predominantly central/perihi lar distribution. Mediastinum: Mediastinal contours appear normal. Heart size is normal. Bones and chest wall: No suspicious bony lesions. Overlying soft tissues appear unremarkable. IMPRESSION: Patchy airspace opacities throughout both lungs with a predominantly central and perihilar distributi on. Findings would be consistent with a viral pneumonitis as provided in the clinical history. Reviewed by: Bakari Ramírez MD on 11/27/2020 11:44 AM PDT Approved by: Bakari Ramírez MD on 11/27/2020 11:44 AM PDT Station ID: [id number]
[2020-11-27 11:55] LABS: VBG HCO3 25.4 mmol/L (23-28); VBG PCO2 40.9 mmHg (41-51); VBG PH 7.411 (7.31-7.41); VBG PO2 27.2 mmHg (25-47); VBG TOTAL CO2 26.7 mmol/L (24-29)
[2020-11-27 11:56] LABS: VBG BASE EXCESS 0.7 mmol/L (-2 - +2); VBG OXYGEN SATURATION 54.5 % (60-80)
[2020-11-27] MEDS ORDERED: ACETAMINOPHEN 325 MG TABLET PO STA (12:21)
[2020-11-27 12:33] LABS: GLUCOSE, URINE (UA) NEGATIVE (NEGATIVE); KETONES,URINE (UA) >=80 mg/dL (NEGATIVE); LEUKOCYTE ESTERASE, URINE NEGATIVE (NEGATIVE); NITRITE,URINE NEGATIVE (NEGATIVE); OCCULT BLOOD,URINE SMALL (NEGATIVE); PROTEIN,URINE 100 mg/dL (NEGATIVE); UROBILINOGEN,URINE 0.2 (NORMAL) E.U./dL (NORMAL)
[2020-11-27 12:35] LABS: BILIRUBIN,URINE NEGATIVE (NEGATIVE); CLARITY,URINE CLEAR (CLEAR); ICTOTEST,URINE NEGATIVE
[2020-11-27 12:43] LABS: AMORPHOUS SEDIMENT,UR Rare /LPF; BACTERIA,URINE None Seen /HPF (None Seen); MUCUS,URINE Few Strands; RBC,URINE 0-5 /HPF (0-5); SQUAMOUS EPITHELIAL CELL,UR FEW Squamous (<= Few); WBC,URINE 0-3 /HPF (0-5)
[2020-11-27] MEDS ORDERED: DEXAMETHASONE 10 MG/ML VIAL IVP STA (12:46)
[2020-11-27] MEDS ORDERED: SODIUM CHLORIDE 0.9% 250 ML IV STA (12:48)
[2020-11-27] MEDS ORDERED: ONDANSETRON 4 MG/2 ML VIAL IVP STA (12:48)
--- NOTE | 2020-11-27 13:57 | ED Physician Documentation ---
History of Present Illness - Stated complaint Stated Complaint: COVID POS - Chief complaint Chief Complaint: Abd Pain - History obtained from History obtained from: Patient - Additonal information Additional information: 30-year-old woman with past medical history of gastroesophageal reflux only on Pepcid, presents with Covid symptoms progressive over the past week. She was diagnosed on Monday and has had T-max of 104 but has not had fevers in the past couple days. She is however having nonbloody nonbilious nausea and vomiting and nonbloody diarrhea to the extent that she is unable to keep down fluids very well. She also has had progressive shortness of breath worsening acutely this morning. Denies leg swelling chest pain. Patient is with mild cough that is nonproductive. 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 - Present Medications Home Medications: Ambulatory Orders Medication Instructions Recorded Confirmed Famotidine [Acid-Pep] 20 mg PO DAILY PM 11/27/20 11/27/20 - Allergies Allergies/Adverse Reactions: Allergies Allergy/AdvReac Type Severity Reaction Status Date / Time Penicillins Allergy Rash Verified 11/27/20 11:01 - Social History Does the pt smoke?: No Smoking Status: Never smoker Does the pt drink ETOH?: Yes Does the pt have substance abuse?: No PD ED PE NORMAL - Vitals Vital signs reviewed: Yes - General General: Alert and oriented X 3, No acute distress, Well developed/nourished, Other (mild tachypnea on initial exam, improved with nasal cannula) - HEENT HEENT: Atraumatic, PERRL, EOMI - Neck Neck: Supple, no meningeal sign - Cardiac Cardiac: RRR - Respiratory Respiratory: Other (BL rales) - Abdomen Abdomen: Non tender, Non distended - Derm Derm: Normal color, Warm and dry - Extremities Extremities: No deformity - Neuro Neuro: Alert and oriented X 3 - Psych Psych: Normal mood, Normal affect Results - Vitals Vitals: Vital Signs - 24 hr 11/27/20 11/27/2011/27/21 10:46 12:30 13:01 Temperature 36.8 C 36.9 C Heart Rate 114 H 94 Respiratory 16 18 Rate Blood Pressure 122/80 110/74 O2 Saturation 92 88 L 92 11/27/20 13:19 Temperature Heart Rate Respiratory 18 Rate Blood Pressure O2 Saturation 96 Oxygen O2 Source Nasal cannula - Labs Labs: Laboratory Tests 11/27/20 11/27/20 11/27/20 10:53 10:53 10:53 WBC 8.0 RBC 4.66 Hgb 13.9 Hct 42.0 MCV 90.1 MCH 29.8 MCHC 33.1 RDW 12.3 Plt Count 365 MPV 8.4 Neut # (Auto) 5.8 Lymph # (Auto) 1.0 L [place] # (Auto) 1.0 Eos # (Auto) 0.1 Baso # (Auto) 0.0 Absolute Nucleated RBC 0.00 Nucleated RBC % 0.0 ESR 87 H VBG pH VBG pCO2 VBG pO2 VBG HCO3 VBG Total CO2 VBG O2 Saturation VBG Base Excess Sodium 139 Potassium 4.4 Chloride 101 Carbon Dioxide 24 Anion Gap 14.0 H BUN 10 Creatinine 0.6 Estimated GFR (MDRD) 117 Glucose 99 Lactic Acid Calcium 9.1 Total Bilirubin 0.6 AST 25 ALT 28 Alkaline Phosphatase 46 C-Reactive Protein Total Protein 8.4 H Albumin 3.6 Globulin 4.8 H Albumin/Globulin Ratio 0.8 L Lipase 31 Urine Color Urine Clarity Urine pH Ur Specific [place] Urine Protein Urine Glucose (UA) Urine Ketones Urine Occult Blood Urine Nitrite Urine Bilirubin Urine Urobilinogen Ur Leukocyte Esterase Urine RBC Urine WBC Ur Squamous Epith Cells Amorphous Sediment Urine Bacteria Urine Mucus Ur Microscopic Review Urine Culture Comments 11/27/20 11/27/20 11/27/20 10:53 11:50 11:50 WBC RBC Hgb Hct MCV MCH MCHC RDW Plt Count MPV Neut # (Auto) Lymph # (Auto) [place] # (Auto) Eos # (Auto) Baso # (Auto) Absolute Nucleated RBC Nucleated RBC % ESR VBG pH 7.411 H VBG pCO2 40.9 L VBG pO2 27.2 VBG HCO3 25.4 VBG Total CO2 26.7 VBG O2 Saturation 54.5 L VBG Base Excess 0.7 Sodium Potassium Chloride Carbon Dioxide Anion Gap BUN Creatinine Estimated GFR (MDRD) Glucose Lactic Acid 1.1 Calcium Total Bilirubin AST ALT Alkaline Phosphatase C-Reactive Protein 22.8 H Total Protein Albumin Globulin Albumin/Globulin Ratio Lipase Urine Color Urine Clarity Urine pH Ur Specific [place] Urine Protein Urine Glucose (UA) Urine Ketones Urine Occult Blood Urine Nitrite Urine Bilirubin Urine Urobilinogen Ur Leukocyte Esterase Urine RBC Urine WBC Ur Squamous Epith Cells Amorphous Sediment Urine Bacteria Urine Mucus Ur Microscopic Review Urine Culture Comments 11/27/20 12:12 WBC RBC Hgb Hct MCV MCH MCHC RDW Plt Count MPV Neut # (Auto) Lymph # (Auto) [place] # (Auto) Eos # (Auto) Baso # (Auto) Absolute Nucleated RBC Nucleated RBC % ESR VBG pH VBG pCO2 VBG pO2 VBG HCO3 VBG Total CO2 VBG O2 Saturation VBG Base Excess Sodium Potassium Chloride Carbon Dioxide Anion Gap BUN Creatinine Estimated GFR (MDRD) Glucose Lactic Acid Calcium Total Bilirubin AST ALT Alkaline Phosphatase C-Reactive Protein Total Protein Albumin Globulin Albumin/Globulin Ratio Lipase Urine Color YELLOW Urine Clarity CLEAR Urine pH 6.0 Ur Specific [place] 1.020 Urine Protein 100 H Urine Glucose (UA) NEGATIVE Urine Ketones >=80 H Urine Occult Blood SMALL H Urine Nitrite NEGATIVE Urine Bilirubin NEGATIVE Urine Urobilinogen 0.2 (NORMAL) Ur Leukocyte Esterase NEGATIVE Urine RBC 0-5 Urine WBC 0-3 Ur Squamous Epith Cells FEW Squamous Amorphous Sediment Rare Urine Bacteria None Seen Urine Mucus Few Strands Ur Microscopic Review INDICATED Urine Culture Comments NOT INDICATED PD MEDICAL DECISION MAKING - ED course ED course: Patient desatted to 88% on room air when she went to walk to the bathroom and w as visibly tachypneic. Discussed with the patient who is amenable to admission discussed with Dr. Choi who will admit for full inpatient care. Departure - Departure Disposition: 66 [facility] DC/Xfer Clinical Impression: COVID-19, Shortness of breath, Nausea and vomiting, Hypoxia Condition: Good
[2020-11-27] MEDS ORDERED: ENOXAPARIN 80 MG/0.8 ML SYRINGE SUBQ STA (13:58)
[2020-11-27 15:15] LABS: CORONAVIRUS 229E-RESP PCR NOT DETECTED; CORONAVIRUS HKU1-RESP PCR NOT DETECTED; CORONAVIRUS NL63-RESP PCR NOT DETECTED; CORONAVIRUS OC43-RESP PCR NOT DETECTED
[2020-11-27 15:18] LABS: B. PARAPERTUSSIS- RESP PCR PAN NOT DETECTED; B. PERTUSSIS- RESP PCR PANEL NOT DETECTED; C. PNEUMONIAE- RESP PCR PANEL NOT DETECTED; HUMAN METAPNEUMOVIRUS NOT DETECTED; INFLUENZA A- RESP PCR PANEL NOT DETECTED; INFLUENZA B - RESP PCR PANEL NOT DETECTED; M. PNEUMONIAE- RESP PCR PANEL NOT DETECTED; PARAINFLUENZA VIRUS 1 NOT DETECTED; PARAINFLUENZA VIRUS 2 NOT DETECTED; PARAINFLUENZA VIRUS 3 NOT DETECTED; PARAINFLUENZA VIRUS 4 NOT DETECTED; RHINOVIRUS/ENTEROVIRUS NOT DETECTED; RSV- RESP PCR PANEL NOT DETECTED; SARS-CoV-2 -RESP PCR PANEL DETECTED
[2020-11-27 15:37] LABS: HCG UR QUAL NEGATIVE
[2020-11-27] MEDS ORDERED: PROCHLORPERAZINE 10 MG/2 ML VIAL IVP PRN (15:47)
[2020-11-27] MEDS ORDERED: SODIUM CHLORIDE FLUSH 0.9% 10 ML SYRINGE IVP PRN (15:47)
[2020-11-27] MEDS ORDERED: ACETAMINOPHEN 325 MG TABLET PO PRN (15:47)
--- OUTSIDE RECORDS SUMMARY | 2020-11-27 16:14 | EXTERNAL MEDICAL SUMMARY RPT | Continuity of Care Document ---
:1990 Demographics Phone Unavailable Preferred Language Unknown Marital Status Unknown Quaker Affiliation Unknown Race Unknown Ethnic Group Unknown Author Organization [facility] Address [address] [phone] Phone Social History date description facility [phone]
--- NOTE | 2020-11-27 16:30 | HISTORY & PHYSICAL EXAMINATION ---
Chief Complaint - Chief Complaint Chief Complaint: SOB, N/V/D History of Present Illness - Admitted From Admitted From:: ER - History of Present Illness HPI Comment/Other: This is a 30-year-old white female with only history of GERD. She developed respiratory symptoms about 1 week ago and was tested for Covid elsewhere and reported that she was Covid positive. She caught it from her , she said, and he had a mild course. Over the past 1 week she has developed worsening shortness of breath and new nausea, vomiting, diarrhea and had a fever yesterday and cannot keep any food down for the past several days. She came to the ER with these complaints and was found to have a chest x-ray consistent with bilateral atypical pneumonia of Covid and our respiratory panel is positive for Covid. Her oxygen saturation was 95% on room air but with exertion she desaturates to 88%. The patient was presented to the Hospitalist team for management of acute respiratory failure secondary to Covid pneumonia and Covid associated viral syndrome of nausea, vomiting and diarrhea with dehydration. 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 6-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, she does not work outside of the home) - Substance History Use: Uses substance without health or social issues: NONE Meds/Allgy - Home Medications Home Medications: Ambulatory Orders Medication Instructions Recorded Confirmed Famotidine [Acid-Pep] 20 mg PO DAILY PM 11/27/20 11/27/20 - Allergies Allergies/Adverse Reactions: Allergies Allergy/AdvReac Type Severity Reaction Status Date / Time Penicillins Allergy Rash Verified 11/27/20 11:01 Review of Systems - Constitutional Constitutional: reports: Fatigue, Fever, Malaise - Respiratory Respiratory: reports: Cough, SOB at rest, SOB with exertion - Gastrointestinal Gastrointestinal: reports: Diarrhea (liquid brown stool, no blood), Nausea, Vomiting - All Other Systems All Other Systems: reports: Reviewed and negative Exam - Vital Signs Vital Signs: Vital Signs x48h Temp Pulse Resp BP Pulse Ox 11/27/20 15:00 37.2 C 101 H 20 113/71 95 11/27/20 13:19 18 96 11/27/20 13:01 36.9 C 94 18 110/74 92 11/27/20 12:30 88 L 11/27/20 10:46 36.8 C 114 H 16 122/80 92 - Physical Exam General Appearance: positive: No acute distress, Alert Eyes Bilateral: positive: Normal inspection, EOMI ENT: positive: ENT inspection nml, No signs of dehydration Neck: positive: Nml inspection, No JVD Respiratory: positive: No respiratory distress, Breath sounds nml (but diminished diffusely) Cardiovascular: positive: Regular rate & rhythm, No murmur Skin: positive: No rash, Warm, Dry Extremities: positive: Non-tender, No pedal edema Neurologic/Psychiatric: positive: Oriented x3, Motor nml Conclusion/Plan - Problem List (1) Pneumonia due to COVID-19 virus Conclusion/Plan: Admit patient and begin respiratory isolation precautions. Start Remdesivir iv 200 mg today then 100 mg for 4 more days. Follow her liver function test. Start Decadron 6 mg IV daily. Start Lovenox 40 mg subcutaneous daily. Continue with supplemental oxygen support. When she can take p.o. meds and not have nausea, will promote the use of Mucinex for expectorating her sputum. (2) Nausea and vomiting Conclusion/Plan: Begin bowel rest with only clear liquid intake. Start IV fluids to avoid dehydration. Give antiemetics IV as needed. Follow BMP, phosphate and magnesium daily, replace if low. (3) Diarrhea due to COVID-19 Conclusion/Plan: Continue with supportive care, bowel rest, IV fluids until she can begin oral intake. (4) GERD (gastroesophageal reflux disease) Conclusion/Plan: She is requesting to stay on Pepcid and also needs TUMS prn. - Lab Results Fish Bones: 11/27/20 10:53 11/27/20 10:53
[2020-11-27] MEDS: D5NS W/20 MEQ KCL 1,000 ML IV SCH (16:52)
[2020-11-27] MEDS: SODIUM CHLORIDE FLUSH 0.9% 10 ML SYRINGE IVP SCH (17:24)
[2020-11-27] MEDS ORDERED: CALCIUM CARBONATE CHEW 500 MG TABLET PO PRN (17:56)
[2020-11-27] MEDS ORDERED: REMDESIVIR 100MG VIAL 200 MG in SODIUM CHLORIDE 0.9% 250 ML IV ONE (18:00)
[2020-11-27] MEDS: FAMOTIDINE 20 MG TABLET PO SCH (22:04)
[2020-11-28] MEDS: ONDANSETRON 4 MG/2 ML VIAL IVP PRN ×3 (01:58→14:15)
[2020-11-28] MEDS: SODIUM CHLORIDE FLUSH 0.9% 10 ML SYRINGE IVP SCH ×3 (02:00→14:16)
[2020-11-28] MEDS: D5NS W/20 MEQ KCL 1,000 ML IV SCH ×2 (02:00→14:15)
[2020-11-28 06:09] LABS: BASOPHILS % (AUTO) 0.1 %; HCT - HEMATOCRIT 37.7 % (37.0-47.0); HGB - HEMOGLOBIN 12.6 g/dL (12.0-16.0); LYMPHOCYTES % (AUTO) 12.9 %; MEAN CORPUSCULAR HEMOGLOBIN 29.7 pg (27.0-31.0); MEAN CORPUSCULAR HGB CONC 33.4 g/dL (32.0-36.0); MEAN CORPUSCULAR VOLUME 88.9 fL (81.0-99.0); MEAN PLATELET VOLUME 8.3 fL (7.9-10.8); MONOCYTES # (AUTO) 0.6 10^3/uL (0.0-1.0); MONOCYTES % (AUTO) 8.1 %; NEUTROPHILS % (AUTO) 77.2 %; PLT - PLATELET COUNT 387 10^3/uL (130-450); RED BLOOD COUNT 4.24 10^6/uL (4.20-5.40); RED CELL DISTRIBUTION WIDTH 12.1 % (12.0-15.0); WHITE BLOOD COUNT 7.7 x10^3/uL (4.8-10.8)
[2020-11-28 06:40] LABS: BILIRUBIN,DIRECT 0.1 mg/dL (0.1-0.5); BILIRUBIN,TOTAL 0.7 mg/dL (0.2-1.0); CALCIUM 8.4 mg/dL (8.5-10.3); CREATININE 0.5 mg/dL (0.4-1.0); MAGNESIUM 2.3 mg/dL (1.7-2.8); PHOSPHORUS 2.2 mg/dL (2.5-4.6); POTASSIUM 4.3 mmol/L (3.5-5.0); TOTAL PROTEIN 7.2 g/dL (6.7-8.2)
[2020-11-28] MEDS: FAMOTIDINE 20 MG TABLET PO SCH ×2 (08:46→20:54)
[2020-11-28] MEDS: DEXAMETHASONE 4 MG/ML VIAL IVP SCH (08:46)
[2020-11-28] MEDS: ENOXAPARIN 40 MG/0.4 ML SYRINGE SUBQ SCH (08:51)
[2020-11-28] MEDS: REMDESIVIR 100MG VIAL 100 MG in SODIUM CHLORIDE 0.9% 100ML 100 ML IV SCH (14:15)
--- NOTE | 2020-11-28 17:12 | PROVIDER PROGRESS NOTE ---
Assessment/Plan - Problem List (1) Pneumonia due to COVID-19 virus Assessment/Plan: Continue with supplemental oxygen, keeping sats 90 to 92%. Continue with Remdesivir, today is day # 2 of maximum of 5 days. Continue with IV Decadron daily. Continue with Lovenox subcu daily. Continue with isolation precautions. (2) Nausea and vomiting Assessment/Plan: Slowly improving. Continue IV fluids. Advance her diet as tolerated: will order puree diet for dinner, with no milk products (as they are harder to digest). (3) Diarrhea due to COVID-19 Assessment/Plan: She still has "grumbling" in her abdomen but the diarrhea has ceased. Continue with gentle IV hydration. Watch for recurrence of diarrhea as her diet is advanced (4) GERD (gastroesophageal reflux disease) Assessment/Plan: The Pepcid was resumed and her heartburn has been suppressed - Current Meds Current Meds: Current Medications Generic Name Dose Route Start Last Admin Trade Name Freq PRN Reason Stop Dose Admin Acetaminophen 650 mg 11/27/20 15:47 11/27/20 22:04 Acetaminophen 325 Mg Tablet PO 650 mg Q4HR PRN Administration Pain or Fever > 38C (100.4F) Calcium Carbonate/Glycine 500 mg 11/27/20 17:56 11/27/20 18:32 Calcium Carbonate Chew 500 Mg Tablet PO 500 mg TID PRN Administration Heartburn Dexamethasone 6 mg 11/28/20 09:00 11/28/20 08:46 Dexamethasone 4 Mg/Ml Vial IVP 6 mg DAILY DI Administration Enoxaparin Sodium 40 mg 11/28/20 09:00 11/28/20 08:51 Enoxaparin 40 Mg/0.4 Ml Syringe SUBQ 40 mg DAILY DI Administration Famotidine 20 mg 11/27/20 21:00 11/28/20 08:46 Famotidine 20 Mg Tablet PO 20 mg BID DI Administration Potassium Chloride/Dextrose/Sod Cl 1,000 mls @ 100 mls/hr 11/27/20 16:00 11/28/20 14:15 D5ns W/20 Meq Kcl IV 100 mls/hr .Q10H DI Administration Remdesivir 100 mg/ Sodium 100 mls @ 200 mls/hr 11/28/20 14:00 11/28/20 16:21 Chloride IV 12/01/20 09:29 Infused DAILY DI Infusion Ondansetron HCl 4 mg 11/27/20 15:47 11/28/20 14:15 Ondansetron 4 Mg/2 Ml Vial IVP 4 mg Q6HR PRN Administration Nausea / Vomiting Sodium Chloride 10 ml 11/27/20 17:00 11/28/20 14:16 Sodium Chloride Flush 0.9% 10 Ml Syringe IVP 10 ml 0100,0900,1700 DI Administration - Lab Result Fish Bone Diagrams: 11/28/20 06:00 11/28/20 06:00 - Additional Planning My Orders: My Active Orders 11/27/20 17:00 Sodium Chloride Flush 0.9% [Normal Saline Flush 0.9%] 10 ml IVP 0100,0900,1700 11/27/20 17:56 Calcium Carbonate [Tums] 500 mg PO TID PRN 11/27/20 21:00 Famotidine [Pepcid] 20 mg PO BID 11/28/20 09:00 Enoxaparin [Lovenox] 40 mg SUBQ DAILY dexAMETHasone [Decadron] 6 mg IVP DAILY 11/28/20 14:00 Remdesivir 100Mg Vial [Veklury] 100 mg Sodium Chloride 0.9% 100Ml [Normal Saline 0.9% 100Ml] 100 ml IV DAILY 11/28/20 Dinner Dysphagia Puree Diet [DIET] 11/28/20 21:00 guaiFENesin [Mucinex] 600 mg PO BID 11/29/20 05:00 BMP - BASIC METABOLIC PANEL [CHEM] DAILYLAB CBC - COMP BLD CT W/AUTO DIFF [HEME] DAILYLAB LIVER PANEL [CHEM] DAILYLAB MAGNESIUM [CHEM] DAILYLAB PHOSPHORUS [CHEM] DAILYLAB 11/30/20 05:00 BMP - BASIC METABOLIC PANEL [CHEM] DAILYLAB CBC - COMP BLD CT W/AUTO DIFF [HEME] DAILYLAB LIVER PANEL [CHEM] DAILYLAB 12/01/20 05:00 BMP - BASIC METABOLIC PANEL [CHEM] DAILYLAB CBC - COMP BLD CT W/AUTO DIFF [HEME] DAILYLAB LIVER PANEL [CHEM] DAILYLAB Subjective - Subjective Patient Reports: Feeling Better, Nausea (She starts to get nauseated but the IV Zofran and IV Compazine control this and there has been no vomiting. She is interested in advancing her diet therefore.), Other (She has had no BMs since yesterday, she thinks she is completely "cleaned out" after having so many days of diarrhea.) Objective Vital Signs: Vital Signs - 24 hr 11/27/20 11/27/20 11/28/20 20:00 21:00 00:00 Temperature 36.5 C 36.5 C 36.4 C L Heart Rate 85 Heart Rate [ 74 Brachial] Respiratory 20 18 Rate Blood Pressure 131/87 H [Left Brachial artery] O2 Saturation 95 95 11/28/20 11/28/20 11/28/20 08:00 12:00 12:10 Temperature 36.4 C L Heart Rate Heart Rate [ 75 Brachial] Respiratory 22 18 18 Rate Blood Pressure 112/78 [Left Brachial artery] O2 Saturation 93 94 96 11/28/20 16:00 Temperature 36.9 C Heart Rate Heart Rate [ 62 Brachial] Respiratory 16 Rate Blood Pressure 127/72 [Left Brachial artery] O2 Saturation 93 Oxygen O2 Source Nasal cannula I&O (Last 24 Hrs): Intake and Output Totals x24h 11/26/20 11/27/20 11/28/20 23:59 23:59 23:59 Intake Total 1035 2365 Output Total 1100 Balance -65 2365 General: Alert, Oriented x3 HEENT: Mucous membr. moist/pink Neck: Supple, No JVD Neuro: Alert, Non Focal Cardiovascular: Regular rate Respiratory: No respiratory distress Abdomen: Soft Extremities: No edema - Results Results: Laboratory Results WBC 7.7 x10^3/uL (4.8-10.8) 11/28/20 06:00 RBC 4.24 10^6/uL (4.20-5.40) 11/28/20 06:00 Hgb 12.6 g/dL (12.0-16.0) 11/28/20 06:00 Hct 37.7 % (37.0-47.0) 11/28/20 06:00 MCV 88.9 fL (81.0-99.0) 11/28/20 06:00 MCH 29.7 pg (27.0-31.0) 11/28/20 06:00 MCHC 33.4 g/dL (32.0-36.0) 11/28/20 06:00 RDW 12.1 % (12.0-15.0) 11/28/20 06:00 Plt Count 387 10^3/uL (130-450) 11/28/20 06:00 MPV 8.3 fL (7.9-10.8) 11/28/20 06:00 Neut # (Auto) 6.0 10^3/uL (1.5-6.6) 11/28/20 06:00 Lymph # (Auto) 1.0 10^3/uL (1.5-3.5) L 11/28/20 06:00 [place] # (Auto) 0.6 10^3/uL (0.0-1.0) 11/28/20 06:00 Eos # (Auto) 0.0 10^3/uL (0.0-0.7) 11/28/20 06:00 Baso # (Auto) 0.0 10^3/uL (0.0-0.1) 11/28/20 06:00 Absolute Nucleated RBC 0.00 x10^3/uL 11/28/20 06:00 Nucleated RBC % 0.0 /100WBC 11/28/20 06:00 ESR 87 mm/Hr (0-20) H 11/27/20 10:53 VBG pH 7.411 (7.31-7.41) H 11/27/20 11:50 VBG pCO2 40.9 mmHg (41-51) L 11/27/20 11:50 VBG pO2 27.2 mmHg (25-47) 11/27/20 11:50 VBG HCO3 25.4 mmol/L (23-28) 11/27/20 11:50 VBG Total CO2 26.7 mmol/L (24-29) 11/27/20 11:50 VBG O2 Saturation 54.5 % (60-80) L 11/27/20 11:50 VBG Base Excess 0.7 mmol/L (-2 - +2) 11/27/20 11:50 Sodium 138 mmol/L (135-145) 11/28/20 06:00 Potassium 4.3 mmol/L (3.5-5.0) 11/28/20 06:00 Chloride 109 mmol/L (101-111) 11/28/20 06:00 Carbon Dioxide 20 mmol/L (21-32) L 11/28/20 06:00 Anion Gap 9.0 (6-13) 11/28/20 06:00 BUN 11 mg/dL (6-20) 11/28/20 06:00 Creatinine 0.5 mg/dL (0.4-1.0) 11/28/20 06:00 Estimated GFR (MDRD) 144 (>89) 11/28/20 06:00 Glucose 170 mg/dL (70-100) H 11/28/20 06:00 Lactic Acid 1.1 mmol/L (0.5-2.2) 11/27/20 11:50 Calcium 8.4 mg/dL (8.5-10.3) L 11/28/20 06:00 Phosphorus 2.2 mg/dL (2.5-4.6) L 11/28/20 06:00 Magnesium 2.3 mg/dL (1.7-2.8) 11/28/20 06:00 Total Bilirubin 0.7 mg/dL (0.2-1.0) 11/28/20 06:00 Direct Bilirubin 0.1 mg/dL (0.1-0.5) 11/28/20 06:00 AST 17 IU/L (10-42) 11/28/20 06:00 ALT 27 IU/L (10-60) 11/28/20 06:00 Alkaline Phosphatase 44 IU/L (42-121) 11/28/20 06:00 C-Reactive Protein 22.8 mg/dL (0-1.0) H 11/27/20 10:53 Total Protein 7.2 g/dL (6.7-8.2) 11/28/20 06:00 Albumin 3.0 g/dL (3.2-5.5) L 11/28/20 06:00 Globulin 4.2 g/dL (2.1-4.2) 11/28/20 06:00 Albumin/Globulin Ratio 0.8 (1.0-2.2) L 11/27/20 10:53 Lipase 31 U/L (22-51) 11/27/20 10:53 Urine Color YELLOW 11/27/20 12:12 Urine Clarity CLEAR (CLEAR) 11/27/20 12:12 Urine pH 6.0 PH (5.0-7.5) 11/27/20 12:12 Ur Specific [place] 1.020 (1.002-1.030) 11/27/20 12:12 Urine Protein 100 mg/dL (NEGATIVE) H 11/27/20 12:12 Urine Glucose (UA) NEGATIVE mg/dL (NEGATIVE) 11/27/20 12:12 Urine Ketones >=80 mg/dL (NEGATIVE) H 11/27/20 12:12 Urine Occult Blood SMALL (NEGATIVE) H 11/27/20 12:12 Urine Nitrite NEGATIVE (NEGATIVE) 11/27/20 12:12 Urine Bilirubin NEGATIVE (NEGATIVE) 11/27/20 12:12 Urine Urobilinogen 0.2 (NORMAL) E.U./dL (NORMAL) 11/27/20 12:12 Ur Leukocyte Esterase NEGATIVE (NEGATIVE) 11/27/20 12:12 Urine RBC 0-5 /HPF (0-5) 11/27/20 12:12 Urine WBC 0-3 /HPF (0-5) 11/27/20 12:12 Ur Squamous Epith Cells FEW Squamous (<= Few) 11/27/20 12:12 Amorphous Sediment Rare /LPF 11/27/20 12:12 Urine Bacteria None Seen /HPF (None Seen) 11/27/20 12:12 Urine Mucus Few Strands 11/27/20 12:12 Ur Microscopic Review INDICATED 11/27/20 12:12 Urine Culture Comments NOT INDICATED 11/27/20 12:12 Urine HCG, Qual NEGATIVE 11/27/20 12:12 Nasal Adenovirus (PCR) NOT DETECTED 11/27/20 14:04 Nasal B. parapertussis DNA (PCR) NOT DETECTED 11/27/20 14:04 Nasal Coronavir 229E PCR NOT DETECTED 11/27/20 14:04 Nasal Coronavir HKU1 PCR NOT DETECTED 11/27/20 14:04 Nasal Coronavir NL63 PCR NOT DETECTED 11/27/20 14:04 Nasal Coronavir OC43 PCR NOT DETECTED 11/27/20 14:04 Nasal Enterovir/Rhinovir PCR NOT DETECTED 11/27/20 14:04 Nasal Influenza B PCR NOT DETECTED 11/27/20 14:04 Nasal Influenza A PCR NOT DETECTED 11/27/20 14:04 Nasal Parainfluen 1 PCR NOT DETECTED 11/27/20 14:04 Nasal Parainfluen 2 PCR NOT DETECTED 11/27/20 14:04 Nasal Parainfluen 3 PCR NOT DETECTED 11/27/20 14:04 Nasal Parainfluen 4 PCR NOT DETECTED 11/27/20 14:04 Nasal RSV (PCR) NOT DETECTED 11/27/20 14:04 Nasal B.pertussis DNA PCR NOT DETECTED 11/27/20 14:04 Nasal C.pneumoniae (PCR) NOT DETECTED 11/27/20 14:04 Herb Human Metapneumo PCR NOT DETECTED 11/27/20 14:04 Nasal M.pneumoniae (PCR) NOT DETECTED 11/27/20 14:04 Nasal SARS-CoV-2 (PCR) DETECTED A 11/27/20 14:04 - Procedures Procedures: Procedures (06/15/18) EXTRACTION OF POC, LOW CERVICAL, OPEN APPROACH (06/15/18) INTRODUCTION OF OTH HORMONE INTO PERIPH VEIN, PERC APPROACH (06/15/18)
[2020-11-28] MEDS: guaiFENesin 600 MG TABLET PO SCH (20:54)
[2020-11-29] MEDS: D5NS W/20 MEQ KCL 1,000 ML IV SCH ×3 (00:52→20:22)
[2020-11-29] MEDS: SODIUM CHLORIDE FLUSH 0.9% 10 ML SYRINGE IVP SCH ×3 (00:54→16:29)
[2020-11-29 05:47] LABS: BASOPHILS % (AUTO) 0.1 %; HCT - HEMATOCRIT 35.1 % (37.0-47.0); HGB - HEMOGLOBIN 11.8 g/dL (12.0-16.0); LYMPHOCYTES # (AUTO) 1.9 10^3/uL (1.5-3.5); LYMPHOCYTES % (AUTO) 10.9 %; MEAN CORPUSCULAR HEMOGLOBIN 30.3 pg (27.0-31.0); MEAN CORPUSCULAR HGB CONC 33.6 g/dL (32.0-36.0); MEAN PLATELET VOLUME 8.3 fL (7.9-10.8); MONOCYTES # (AUTO) 1.1 10^3/uL (0.0-1.0); MONOCYTES % (AUTO) 6.3 %; NEUTROPHILS # (AUTO) 13.7 10^3/uL (1.5-6.6); NEUTROPHILS % (AUTO) 81.3 %; PLT - PLATELET COUNT 421 10^3/uL (130-450); RED CELL DISTRIBUTION WIDTH 12.4 % (12.0-15.0); WHITE BLOOD COUNT 16.9 x10^3/uL (4.8-10.8)
[2020-11-29 06:01] LABS: ALBUMIN 2.8 g/dL (3.2-5.5); ALKALINE PHOSPHATASE 36 IU/L (42-121); ALT ALANINE AMINOTRANSFERASE 27 IU/L (10-60); AST ASPARTATE AMINOTRANSFERASE 16 IU/L (10-42); BILIRUBIN,TOTAL 0.4 mg/dL (0.2-1.0); BUN - BLOOD UREA NITROGEN 11 mg/dL (6-20); CALCIUM 8.1 mg/dL (8.5-10.3); CARBON DIOXIDE - CO2 21 mmol/L (21-32); CHLORIDE 111 mmol/L (101-111); CREATININE 0.5 mg/dL (0.4-1.0); GFR - MDRD 144 (>89); GLUCOSE 142 mg/dL (70-100); MAGNESIUM 2.2 mg/dL (1.7-2.8); PHOSPHORUS 2.6 mg/dL (2.5-4.6); POTASSIUM 4.3 mmol/L (3.5-5.0); SODIUM 139 mmol/L (135-145); TOTAL PROTEIN 6.4 g/dL (6.7-8.2)
[2020-11-29 06:21] LABS: BILIRUBIN,DIRECT < 0.1 mg/dL (0.1-0.5)
[2020-11-29] MEDS: DEXAMETHASONE 4 MG/ML VIAL IVP SCH (09:06)
[2020-11-29] MEDS: FAMOTIDINE 20 MG TABLET PO SCH ×2 (09:08→20:22)
[2020-11-29] MEDS: guaiFENesin 600 MG TABLET PO SCH ×2 (09:08→20:22)
[2020-11-29] MEDS: ENOXAPARIN 40 MG/0.4 ML SYRINGE SUBQ SCH (09:09)
[2020-11-29] MEDS: REMDESIVIR 100MG VIAL 100 MG in SODIUM CHLORIDE 0.9% 100ML 100 ML IV SCH (09:10)
--- NOTE | 2020-11-29 16:07 | PROVIDER PROGRESS NOTE ---
Assessment/Plan - Problem List (1) Pneumonia due to COVID-19 virus Assessment/Plan: White blood Count went up to 16.6 from normal the last 2 days. Possibly she is not able to "mount a response" Continue with Remdesivir, today is day 3 of 5. Continue with Decadron. Continue with Lovenox. Continue with supplemental oxygen, weaning down to room air as possible. Continue with isolation precautions Follow CBC daily. (2) Diarrhea due to COVID-19 Assessment/Plan: Will advance diet slowly since diarrhea and hyperactive bowel sounds still present. Continue IV fluids for hydration (3) GERD (gastroesophageal reflux disease) Assessment/Plan: Sinew Pepcid as she had before admission (4) Nausea and vomiting Assessment/Plan: Resolved. Will advance diet slowly since diarrhea still present - Current Meds Current Meds: Current Medications Generic Name Dose Route Start Last Admin Trade Name Freq PRN Reason Stop Dose Admin Acetaminophen 650 mg 11/27/20 15:47 11/27/20 22:04 Acetaminophen 325 Mg Tablet PO 650 mg Q4HR PRN Administration Pain or Fever > 38C (100.4F) Calcium Carbonate/Glycine 500 mg 11/27/20 17:56 11/27/20 18:32 Calcium Carbonate Chew 500 Mg Tablet PO 500 mg TID PRN Administration Heartburn Dexamethasone 6 mg 11/28/20 09:00 11/29/20 09:06 Dexamethasone 4 Mg/Ml Vial IVP 6 mg DAILY DI Administration Enoxaparin Sodium 40 mg 11/28/20 09:00 11/29/20 09:09 Enoxaparin 40 Mg/0.4 Ml Syringe SUBQ 40 mg DAILY DI Administration Famotidine 20 mg 11/27/20 21:00 11/29/20 09:08 Famotidine 20 Mg Tablet PO 20 mg BID DI Administration Guaifenesin 600 mg 11/28/20 21:00 11/29/20 09:08 Guaifenesin 600 Mg Tablet PO 600 mg BID DI Administration Potassium Chloride/Dextrose/Sod Cl 1,000 mls @ 100 mls/hr 11/27/20 16:00 11/29/20 12:12 D5ns W/20 Meq Kcl IV 100 mls/hr .Q10H DI Administration Remdesivir 100 mg/ Sodium 100 mls @ 200 mls/hr 11/28/20 14:00 11/29/20 09:53 Chloride IV 12/01/20 09:29 Infused DAILY DI Infusion Ondansetron HCl 4 mg 11/27/20 15:47 11/28/20 14:15 Ondansetron 4 Mg/2 Ml Vial IVP 4 mg Q6HR PRN Administration Nausea / Vomiting Sodium Chloride 10 ml 11/27/20 17:00 11/29/20 08:24 Sodium Chloride Flush 0.9% 10 Ml Syringe IVP Not Given 0100,0900,1700 DI - Lab Result Fish Bone Diagrams: 11/29/20 05:37 11/29/20 05:37 - Additional Planning My Orders: My Active Orders 11/28/20 Dinner Dysphagia Puree Diet [DIET] 11/28/20 21:00 guaiFENesin [Mucinex] 600 mg PO BID 11/30/20 05:00 BMP - BASIC METABOLIC PANEL [CHEM] DAILYLAB CBC - COMP BLD CT W/AUTO DIFF [HEME] DAILYLAB LIVER PANEL [CHEM] DAILYLAB 12/01/20 05:00 BMP - BASIC METABOLIC PANEL [CHEM] DAILYLAB CBC - COMP BLD CT W/AUTO DIFF [HEME] DAILYLAB LIVER PANEL [CHEM] DAILYLAB Subjective - Subjective Patient Reports: Feeling Better (Diarrhea continues but no further nausea and this is without getting IV antiemetics), Other (Tearful, misses her family) Objective Vital Signs: Vital Signs - 24 hr 11/29/20 11/29/20 11/29/20 00:48 07:38 11:28 Temperature 36.6 C 36.8 C 36.9 C Heart Rate [ 64 61 74 Brachial] Respiratory 17 18 18 Rate Blood Pressure 120/81 H 113/84 H [Left Brachial artery] Blood Pressure 119/52 L [Right Brachial artery] O2 Saturation 93 96 96 11/29/20 11:38 Temperature 36.6 C Heart Rate [ 54 L Brachial] Respiratory 20 Rate Blood Pressure [Left Brachial artery] Blood Pressure 126/89 H [Right Brachial artery] O2 Saturation 97 Oxygen O2 Source Nasal cannula I&O (Last 24 Hrs): Intake and Output Totals x24h 11/27/20 11/28/20 11/29/20 23:59 23:59 23:59 Intake Total 1035 3995 3108.334 Output Total 1100 Balance -65 3995 3108.334 General: Alert, Oriented x3 HEENT: Mucous membr. moist/pink Neck: Supple, No JVD Neuro: Alert, Non Focal Cardiovascular: Regular rate, No murmurs Respiratory: No respiratory distress, [place] (Fine bilateral crackles half way up bilaterally) Abdomen: Soft, No tenderness, Other (Hyperactive bowel sounds) Extremities: No edema Skin: No rashes - Results Results: Laboratory Results WBC 16.9 x10^3/uL (4.8-10.8) H 11/29/20 05:37 RBC 3.90 10^6/uL (4.20-5.40) L 11/29/20 05:37 Hgb 11.8 g/dL (12.0-16.0) L 11/29/20 05:37 Hct 35.1 % (37.0-47.0) L 11/29/20 05:37 MCV 90.0 fL (81.0-99.0) 11/29/20 05:37 MCH 30.3 pg (27.0-31.0) 11/29/20 05:37 MCHC 33.6 g/dL (32.0-36.0) 11/29/20 05:37 RDW 12.4 % (12.0-15.0) 11/29/20 05:37 Plt Count 421 10^3/uL (130-450) 11/29/20 05:37 MPV 8.3 fL (7.9-10.8) 11/29/20 05:37 Neut # (Auto) 13.7 10^3/uL (1.5-6.6) H 11/29/20 05:37 Lymph # (Auto) 1.9 10^3/uL (1.5-3.5) 11/29/20 05:37 [place] # (Auto) 1.1 10^3/uL (0.0-1.0) H 11/29/20 05:37 Eos # (Auto) 0.0 10^3/uL (0.0-0.7) 11/29/20 05:37 Baso # (Auto) 0.0 10^3/uL (0.0-0.1) 11/29/20 05:37 Absolute Nucleated RBC 0.00 x10^3/uL 11/29/20 05:37 Nucleated RBC % 0.0 /100WBC 11/29/20 05:37 ESR 87 mm/Hr (0-20) H 11/27/20 10:53 VBG pH 7.411 (7.31-7.41) H 11/27/20 11:50 VBG pCO2 40.9 mmHg (41-51) L 11/27/20 11:50 VBG pO2 27.2 mmHg (25-47) 11/27/20 11:50 VBG HCO3 25.4 mmol/L (23-28) 11/27/20 11:50 VBG Total CO2 26.7 mmol/L (24-29) 11/27/20 11:50 VBG O2 Saturation 54.5 % (60-80) L 11/27/20 11:50 VBG Base Excess 0.7 mmol/L (-2 - +2) 11/27/20 11:50 Sodium 139 mmol/L (135-145) 11/29/20 05:37 Potassium 4.3 mmol/L (3.5-5.0) 11/29/20 05:37 Chloride 111 mmol/L (101-111) 11/29/20 05:37 Carbon Dioxide 21 mmol/L (21-32) 11/29/20 05:37 Anion Gap 7.0 (6-13) 11/29/20 05:37 BUN 11 mg/dL (6-20) 11/29/20 05:37 Creatinine 0.5 mg/dL (0.4-1.0) 11/29/20 05:37 Estimated GFR (MDRD) 144 (>89) 11/29/20 05:37 Glucose 142 mg/dL (70-100) H 11/29/20 05:37 Lactic Acid 1.1 mmol/L (0.5-2.2) 11/27/20 11:50 Calcium 8.1 mg/dL (8.5-10.3) L 11/29/20 05:37 Phosphorus 2.6 mg/dL (2.5-4.6) 11/29/20 05:37 Magnesium 2.2 mg/dL (1.7-2.8) 11/29/20 05:37 Total Bilirubin 0.4 mg/dL (0.2-1.0) 11/29/20 05:37 Direct Bilirubin < 0.1 mg/dL (0.1-0.5) L 11/29/20 05:37 AST 16 IU/L (10-42) 11/29/20 05:37 ALT 27 IU/L (10-60) 11/29/20 05:37 Alkaline Phosphatase 36 IU/L (42-121) L 11/29/20 05:37 C-Reactive Protein 22.8 mg/dL (0-1.0) H 11/27/20 10:53 Total Protein 6.4 g/dL (6.7-8.2) L 11/29/20 05:37 Albumin 2.8 g/dL (3.2-5.5) L 11/29/20 05:37 Globulin 3.6 g/dL (2.1-4.2) 11/29/20 05:37 Albumin/Globulin Ratio 0.8 (1.0-2.2) L 11/27/20 10:53 Lipase 31 U/L (22-51) 11/27/20 10:53 Urine Color YELLOW 11/27/20 12:12 Urine Clarity CLEAR (CLEAR) 11/27/20 12:12 Urine pH 6.0 PH (5.0-7.5) 11/27/20 12:12 Ur Specific [place] 1.020 (1.002-1.030) 11/27/20 12:12 Urine Protein 100 mg/dL (NEGATIVE) H 11/27/20 12:12 Urine Glucose (UA) NEGATIVE mg/dL (NEGATIVE) 11/27/20 12:12 Urine Ketones >=80 mg/dL (NEGATIVE) H 11/27/20 12:12 Urine Occult Blood SMALL (NEGATIVE) H 11/27/20 12:12 Urine Nitrite NEGATIVE (NEGATIVE) 11/27/20 12:12 Urine Bilirubin NEGATIVE (NEGATIVE) 11/27/20 12:12 Urine Urobilinogen 0.2 (NORMAL) E.U./dL (NORMAL) 11/27/20 12:12 Ur Leukocyte Esterase NEGATIVE (NEGATIVE) 11/27/20 12:12 Urine RBC 0-5 /HPF (0-5) 11/27/20 12:12 Urine WBC 0-3 /HPF (0-5) 11/27/20 12:12 Ur Squamous Epith Cells FEW Squamous (<= Few) 11/27/20 12:12 Amorphous Sediment Rare /LPF 11/27/20 12:12 Urine Bacteria None Seen /HPF (None Seen) 11/27/20 12:12 Urine Mucus Few Strands 11/27/20 12:12 Ur Microscopic Review INDICATED 11/27/20 12:12 Urine Culture Comments NOT INDICATED 11/27/20 12:12 Urine HCG, Qual NEGATIVE 11/27/20 12:12 Nasal Adenovirus (PCR) NOT DETECTED 11/27/20 14:04 Nasal B. parapertussis DNA (PCR) NOT DETECTED 11/27/20 14:04 Nasal Coronavir 229E PCR NOT DETECTED 11/27/20 14:04 Nasal Coronavir HKU1 PCR NOT DETECTED 11/27/20 14:04 Nasal Coronavir NL63 PCR NOT DETECTED 11/27/20 14:04 Nasal Coronavir OC43 PCR NOT DETECTED 11/27/20 14:04 Nasal Enterovir/Rhinovir PCR NOT DETECTED 11/27/20 14:04 Nasal Influenza B PCR NOT DETECTED 11/27/20 14:04 Nasal Influenza A PCR NOT DETECTED 11/27/20 14:04 Nasal Parainfluen 1 PCR NOT DETECTED 11/27/20 14:04 Nasal Parainfluen 2 PCR NOT DETECTED 11/27/20 14:04 Nasal Parainfluen 3 PCR NOT DETECTED 11/27/20 14:04 Nasal Parainfluen 4 PCR NOT DETECTED 11/27/20 14:04 Nasal RSV (PCR) NOT DETECTED 11/27/20 14:04 Nasal B.pertussis DNA PCR NOT DETECTED 11/27/20 14:04 Nasal C.pneumoniae (PCR) NOT DETECTED 11/27/20 14:04 Herb Human Metapneumo PCR NOT DETECTED 11/27/20 14:04 Nasal M.pneumoniae (PCR) NOT DETECTED 11/27/20 14:04 Nasal SARS-CoV-2 (PCR) DETECTED A 11/27/20 14:04 - Procedures Procedures: Procedures (06/15/18) EXTRACTION OF POC, LOW CERVICAL, OPEN APPROACH (06/15/18) INTRODUCTION OF OTH HORMONE INTO PERIPH VEIN, PERC APPROACH (06/15/18)
[2020-11-30] MEDS: SODIUM CHLORIDE FLUSH 0.9% 10 ML SYRINGE IVP SCH ×2 (01:45→08:46)
[2020-11-30] MEDS ORDERED: BENZOCAINE/MENTHOL LOZENGE MM PRN (01:47)
[2020-11-30 05:36] LABS: BASOPHILS % (AUTO) 0.2 %; EOSINOPHILS % (AUTO) 0.2 %; HCT - HEMATOCRIT 38.3 % (37.0-47.0); HGB - HEMOGLOBIN 12.5 g/dL (12.0-16.0); LYMPHOCYTES # (AUTO) 2.2 10^3/uL (1.5-3.5); LYMPHOCYTES % (AUTO) 18.3 %; MEAN CORPUSCULAR HEMOGLOBIN 29.8 pg (27.0-31.0); MEAN CORPUSCULAR HGB CONC 32.6 g/dL (32.0-36.0); MEAN CORPUSCULAR VOLUME 91.2 fL (81.0-99.0); MEAN PLATELET VOLUME 8.5 fL (7.9-10.8); MONOCYTES # (AUTO) 0.7 10^3/uL (0.0-1.0); MONOCYTES % (AUTO) 6.2 %; NEUTROPHILS # (AUTO) 8.6 10^3/uL (1.5-6.6); NEUTROPHILS % (AUTO) 72.4 %; PLT - PLATELET COUNT 487 10^3/uL (130-450); RED CELL DISTRIBUTION WIDTH 12.4 % (12.0-15.0); WHITE BLOOD COUNT 11.9 x10^3/uL (4.8-10.8)
[2020-11-30 05:50] LABS: ALBUMIN 2.9 g/dL (3.2-5.5); ALKALINE PHOSPHATASE 37 IU/L (42-121); ALT ALANINE AMINOTRANSFERASE 36 IU/L (10-60); AST ASPARTATE AMINOTRANSFERASE 20 IU/L (10-42); BILIRUBIN,TOTAL 0.3 mg/dL (0.2-1.0); BUN - BLOOD UREA NITROGEN 8 mg/dL (6-20); CALCIUM 8.3 mg/dL (8.5-10.3); CARBON DIOXIDE - CO2 22 mmol/L (21-32); CHLORIDE 109 mmol/L (101-111); CREATININE 0.5 mg/dL (0.4-1.0); GFR - MDRD 144 (>89); GLUCOSE 113 mg/dL (70-100); POTASSIUM 3.9 mmol/L (3.5-5.0); SODIUM 140 mmol/L (135-145); TOTAL PROTEIN 6.6 g/dL (6.7-8.2)
[2020-11-30 05:52] LABS: BILIRUBIN,DIRECT < 0.1 mg/dL (0.1-0.5)
[2020-11-30] MEDS: D5NS W/20 MEQ KCL 1,000 ML IV SCH (05:59)
[2020-11-30] MEDS: REMDESIVIR 100MG VIAL 100 MG in SODIUM CHLORIDE 0.9% 100ML 100 ML IV SCH (08:40)
[2020-11-30] MEDS: FAMOTIDINE 20 MG TABLET PO SCH (08:45)
[2020-11-30] MEDS: DEXAMETHASONE 4 MG/ML VIAL IVP SCH (08:45)
[2020-11-30] MEDS: guaiFENesin 600 MG TABLET PO SCH (08:45)
[2020-11-30] MEDS: ENOXAPARIN 40 MG/0.4 ML SYRINGE SUBQ SCH (08:46)
--- NOTE | 2020-11-30 09:03 | Discharge Plan ---
Discharge Plan Problem Reviewed?: Yes Disposition: Home, Self Care Condition: Stable Diet: Soft (Eat a bland, easy to digest, low fiber diet, until the diarrhea resolves.) Activity Restrictions: Activity as Tolerated Shower Restrictions: No Driving Restrictions: No Instruction Topics: COVID-19 [facility] Department Statement Health Concerns: You were admitted with low oxygen levels caused by having a Covid pneumonia. You received 4 days of the special medication Remdesivir and also IV steroids and blood thinners. Your oxygen levels have improved and stabilized, so you are being discharged and can continue to recuperate at home. Please follow the quarantine rules in [facility]. If you need it, get [id number] Mucinex to take for breaking up your phlegm. The nausea, vomiting and diarrhea should be handled like usual flu-like symptoms: eat a bland, soft or pureed diet. Stay well hydrated. Resume your usual pre-hospital medications. Plan of Treatment: As above. Care Goals: Improvement in symptoms and stabilization are the goals. Assessment: The patient understands and is agreeable with the plan. Additional Instructions or Follow Up instructions: If you have new or worsening symptoms, call your PCP for advice or come to the ER. No Smoking: If you smoke, Please STOP! Call for help. Follow-up with: Shannon Barker PA-C [Physician No Access] -
[2020-11-30 09:12] VITALS: BP 130/89
--- NOTE | 2020-11-30 10:46 | DISCHARGE SUMMARY ---
Discharge Summary Admit Date: 11/27/20 Discharge Date: 11/30/20 Discharging Provider: Dr Korina Inman Primary Care Provider: PEPE Barker Condition at Discharge: Stable Discharge Disposition: 01 Home, Self Care - HPI History of Present Illness: This is a 30-year-old white female with only history of GERD. She developed respiratory symptoms about 1 week ago and was tested for Covid elsewhere and reported that she was Covid positive. She caught it from her , she said, and he had a mild course. Over the past 1 week she has developed worsening shortness of breath and new nausea, vomiting, diarrhea and had a fever yesterday and cannot keep any food down for the past several days. She came to the ER with these complaints and was found to have a chest x-ray consistent with bilateral atypical pneumonia of Covid and our respiratory panel is positive for Covid. Her oxygen saturation was 95% on room air but with exertion she desaturates to 88% The patient was presented to the Hospitalist team for management of acute respiratory failure secondary to Covid pneumonia and Covid associated viral syndrome of nausea, vomiting and diarrhea with dehydration. - HOSPITAL COURSE Hospital Course: (1) Pneumonia due to COVID-19 virus She was put on supplemental oxygen, keeping sats 90 to 92%, started on daily iv Remdesivir, iv Decadron and sq Lovenox. She had isolation precautions ordered. By her last day, the supplemental O2 was not needed at rest, and she did not desaturate with activity, and was discharged home with recommendations to continue to self-quarantine, as per state and federal guidelines. (2) Nausea and vomiting She was given prn antiemetics by iv and on her last 1.5 days, her nausea resolved, and diet was advanced to pureed. She received IV fluids throughout her stay. (3) Diarrhea due to COVID-19 She had hyperactive bowel sounds in the abdomen but the diarrhea lessened while here. We continued her IV hydration. She was advised to eat a bland diet, advance as tolerated after discharge. (4) GERD (gastroesophageal reflux disease) Her Pepcid was continued and her heartburn was suppressed. - ALLERGIES Allergies/Adverse Reactions: Allergies Allergy/AdvReac Type Severity Reaction Status Date / Time Penicillins Allergy Rash Verified 11/27/20 11:01 - MEDICATIONS Home Medications: Ambulatory Orders Medication Instructions Recorded Confirmed Famotidine [Acid-Pep] 20 mg PO DAILY PM 11/27/20 11/27/20 - PHYSICAL EXAM AT DISCHARGE General Appearance: positive: No acute distress, Alert Eyes Bilateral: positive: Normal inspection, EOMI ENT: positive: ENT inspection nml, No signs of dehydration Neck: positive: Nml inspection, No JVD Respiratory: positive: No respiratory distress, Other (Fine crackles at both bases) Cardiovascular: positive: Regular rate & rhythm, No murmur Abdomen: positive: Non-tender, No distention, Other (Hyperactive bowel sounds) Skin: positive: No rash, Warm, Dry Extremities: positive: Non-tender, No pedal edema Neurologic/Psychiatric: positive: Oriented x3 (Non-focal) - LABS Result Diagrams: 11/30/20 05:15 11/30/20 05:15 - DIAGNOSTIC IMAGING Diagnostic Imaging Results: Final report reviewed - FOLLOW UP Follow Up: See PCP as per her routine. - TIME SPENT Time Spent in Discharge (Minutes): 25
== END 2020-11-30 11:55 | disposition home or self-care (01) | DRG 177 ==
LOC: ED 10:34 → MS2 15:47
PROVIDERS: ADMIT Internal Medicine; ATTEND Internal Medicine
PROC: XW033E5 Introduction of Remdesivir Anti-infective into Peripheral Vein, Percutaneous Approach, New Technology Group 5 (ICD-10-PCS; principal; 2020-11-27)
DX: U07.1 COVID-19 (principal); J12.82 Pneumonia due to coronavirus disease 2019; J96.00 Acute respiratory failure, unspecified whether with hypoxia or hypercapnia; B97.29 Other coronavirus as the cause of diseases classified elsewhere; K21.9 Gastro-esophageal reflux disease without esophagitis; E86.0 Dehydration
CPT/HCPCS: 0202U; 36415; 71045; 80048; 80053; 80076; 81001; 81025; 82803; 83605; 83690; 83735; 84100; 85025; 85651; 86140; 87040; 94761; 96372; 96374; 96375; 99284; 99285; A9270; C9399; J1650; 81003; 87086

== ENCOUNTER 2023-06-02 09:56 | Outpatient (CLI) | payer BC | END 2023-06-02 09:57 | disposition home or self-care (01) | LOC: LAB 09:56 | PROVIDERS: ATTEND Nurse Practitioner | DX: N64.9 Disorder of breast, unspecified (principal) | CPT/HCPCS: 36415; 84146 ==

== ENCOUNTER 2023-06-22 10:47 | Outpatient (CLI) | payer BC ==
--- NOTE | 2023-06-23 13:11 | Ultrasound Report ---
LIMITED ULTRASOUND OF LEFT BREAST: 06/22/2023 CLINICAL: Nipple discharge, left breast, not bloody. Comparison is made to exam dated: 06/22/2023 mammogram - [facility]. Ultrasound of the left breast 2 o'clock, and retroareolar regions was performed. Sánchez scale images of the real-time examination were reviewed. No sonographic abnormality in the left breast subareolar region. IMPRESSION: NEGATIVE No sonographic abnormality in the left breast subareolar region. No mammographic or sonographic evide nce of malignancy. Nipple discharge that is non-spontaneous and bilateral or from multiple ducts in the same breast is t ypically benign or physiologic. Clinical follow-up is recommended, and further management of nipple d ischarge should be based on the results of clinical evaluation. If nipple discharge persists and/or i ncreases in clinical suspicion, further clinical evaluation should be considered. Recommend routine screening mammogram starting at age 40. Findings and recommendations were conveyed to the patient during today's evaluation. This exam was interpreted at Station ID: [id number]. Electronically Signed By: Myesha Harris M.D., PH.D eb/:06/22/2023 13:08:29 Ultrasound BI-RADS: 1 Negative BI-RADS CATEGORY: (1) - 1 Unspecified - other recall n/a LATERALITY: (B)
--- NOTE | 2023-06-23 13:11 | Mammography Report ---
BILATERAL DIGITAL DIAGNOSTIC MAMMOGRAM 3D/2D WITH SPOT COMPRESSION: 06/22/2023 CLINICAL: Baseline exam. Brown nipple discharge from left breast. No prior exams were available for comparison. There are scattered areas of fibroglandular density in both breasts (category b / 25%-50% glandular t issue). Right breast: There is a 0.4 cm oval mass with a circumscribed margin in the right breast at 9 o'clock posterior de pth. No other significant masses, calcifications, or other findings are seen in the breast. Left breast: No significant masses, calcifications, or other findings are seen in the breast. Additional views of the left subareolar region demonstrate no mammographic abnormality. IMPRESSION: INCOMPLETE: NEEDS ADDITIONAL IMAGING EVALUATION 1) Right breast 0.4 cm oval mass at 9 o'clock. An ultrasound is recommended for further evaluation an d is scheduled to immediately follow this examination. 2) Left breast, no mammographic evidence of malignancy. An ultrasound is recommended for further eval uation of the left subareolar region for nipple discharge and is scheduled to immediately follow this examination. Based on the Tyrer Cuzick model (a risk assessment model) the patients lifetime risk is 19.4% and he r 10 year risk is 1.3%. According to the ACR, ACS, and NCCN guidelines, an annual breast MRI exam enrico ng with mammogram is recommended if the patients lifetime risk is 20% or greater. This exam was interpreted at Station ID: [id number]. NOTE: For mammograms, a report in lay terms will be sent to the patient. Approximately 15% of breast malignancies will not be visualized mammographically. In the management of a palpable breast mass, a negative mammogram must not discourage biopsy of a clinically suspicious lesion. Electronically Signed By: Myesha Harris M.D., PH.D eb/:06/22/2023 12:57:26 ACR BI-RADS Category 0: Incomplete 3340F PARENCHYMAL PATTERN: (A) - The breast(s) demonstrate(s) scattered fibroglandular densities. BI-RADS CATEGORY: (0) - 0 Ultrasound [id number] Immediate follow-up LATERALITY: (B)
--- NOTE | 2023-06-23 13:11 | Ultrasound Report ---
LIMITED ULTRASOUND OF RIGHT BREAST: 06/22/2023 CLINICAL: Patient returns today to evaluate a focal asymmetry in the right breast. Comparison is made to exams dated: 06/22/2023 mammogram and 06/22/2023 ultrasound - [facility]. Color flow ultrasound of the right breast 9 o'clock region was performed. Sánchez scale images of the r eal-time examination were reviewed. There is a benign 0.5 cm intramammary lymph node in the right breast at 9 o'clock, 9 cm from the nipp le. This lymph node corresponds to the mass seen on mammogram. IMPRESSION: BENIGN Right breast normal intramammary lymph node at 9 o'clock is benign. No mammographic or no sonographic evidence of malignancy. Recommend routine screening mammogram starting at age 40. Findings and recommendations were conveyed to the patient during today's evaluation. This exam was interpreted at Station ID: [id number]. Electronically Signed By: Myesha Harris M.D., PH.D eb/:06/22/2023 13:05:10 Ultrasound BI-RADS: 2 Benign BI-RADS CATEGORY: (2) - 2 Unspecified - other recall n/a LATERALITY: (B)
== END 2023-06-22 10:48 | disposition home or self-care (01) ==
LOC: DI 10:47
PROVIDERS: ATTEND Nurse Practitioner
DX: N64.52 Nipple discharge (principal); R59.0 Localized enlarged lymph nodes